=== PATIENT | female | born 1990 | race Caucasian/White ===

== ENCOUNTER 2022-09-04 11:07 | Outpatient (CLI) | payer SELFPAY | END 2022-09-04 11:08 | disposition home or self-care (01) | PROVIDERS: Visit Provider Obstetrics & Gynecology | DX: Z02.89 Encounter for other administrative examinations (principal) | CPT/HCPCS: 36415 ==

== ENCOUNTER 2022-10-03 02:46 | Day surgery (SDC) | payer OTHER, SELFPAY ==
[2022-09-24 12:04] VITALS: BMI 22.8
--- NOTE | 2022-09-24 12:08 | PC.NURSE ---
Report to the Outpatient Waiting Room, entrance under the green pavilion located off [facility], at time 0830 on date 10/03/22. Planned Procedure Time: 1030. Time changes happen often and if your time is changed the preop area will call you the afternoon before. - You and your visitor will be asked to self-screen and do not enter if you have any COVID symptoms. - Only one visitor is requested with a max of two and NO children visitors are allowed at this time. - The patient visitor may be requested to leave or wait in car when not with patient due to distancing restrictions. - A mask is optional within the hospital. Patients may have clear liquids (water, carbonated beverages, clear teas, apple juice) until 3 hours prior to surgery with a maximum of 20 ounces. - No food from midnight until time of surgery Take the following medications with a SIP of water the morning of surgery: NONE Medications to discontinue per physician: VITAMINS/SUPPLEMENTS Date to take last dose: 09/29/22 Please no make-up, nail barbadian, hairspray, perfume, deodorant, or body powder the day of surgery. No jewelry (including any body piercings) or valuables the day of surgery, leave them at home. Please take a shower or bath the night before, or the morning of, surgery with an antibacterial soap. Wear comfortable, loose fitting clothing. - Jewelry must be removed prior to entering the operating room. Rings and piercings that are not removed may be cut off. - The hospital will not accept responsibility for valuables. - Please leave all valuables, including medications, at home the day of surgery. If you are going home after surgery, a licensed flatbed truck driver must drive you home. - NO public transportation without another adult if you receive anesthesia. - We recommend that an adult stay with you for 24 hours following discharge. - We also recommend that you do not drive, make important decision, drink alcoholic beverages, or take any drugs that were not prescribed by your health care provider for at least 24 hours after your discharge time. Follow any additional instructions given to you from your surgeon. If you or anyone in your household have experienced Covid symptoms in the past week, please notify your surgeon or the nurse liaison at the phone number below for possible testing. Telephone instructions given to PT - THAIS GEORGES and asked if any additional questions and then verbalized understanding. Patient advised to call surgeon office or pre surgery nurse liaison [phone] if any additional questions.
--- NOTE | 2022-09-30 12:33 | PM.IMHP ---
H&P: HPI History of Present Illness Date/Time: 09/30/22 12:33 Chief Complaint: 1st trimester with an incompetent cervix Narrative: This is a 32-year-old 2 para 0101 who has a history of incompetent cervix and a section x1 who is admitted for cervical cerclage. She has ultrasound proven date with an EDC of 04/11/2023, she has normal chromosomes via NIPT testing. Risks and benefits were reviewed in great detail. She had all questions answered and asked to proceed [facility] Social History Social History Smoking status: Never smoker Alcohol intake: current Alcohol use details: SOCIAL WHEN NOT Substance use: current Substance use type: marijuana Last use: NOT SINCE Living arrangements: alone Spiritual care concerns: No Meds Home Medications and Allergies Home Medications Medication Instructions Recorded Confirmed Type multivitamin 1 tablet PO DAILY 09/24/22 09/24/22 History omega 5-sgu-mnm-fish oil 900 1 cap PO DAILY 09/24/22 09/24/22 History mg-1,400 mg capsule,delayed release zinc acetate 25 mg (zinc) capsule 25 mg PO DAILY 09/24/22 09/24/22 History Allergies Allergy/AdvReac Type Severity Reaction Status Date / Time sulfamethoxazole Allergy Unknown RASH Verified 09/24/22 12:02 trimethoprim Allergy Unknown RASH Verified 09/24/22 12:02 Exam Const: General: cooperative, healthy appearing and comfortable Nutritional Appearance: average body habitus Orientation/consciousness: oriented to person, oriented to place and oriented to time HENMT: Head: normal to inspection Resp: Effort & Inspection: normal respiratory effort Cardio: Rate: regular rate Rhythm: regular rhythm Heart sounds: S1 normal heart sound present and S2 normal heart sound present GI: Inspection: normal to inspection : External Female Exam: normal external appearance Speculum Exam - Vagina: normal appearance of the vagina Speculum Exam - Cervix: normal appearance of the cervix Bimanual exam- vagina & uterus: enlarged Bimanual Exam- Adnexa, other: normal adnexae Assessment and Plan Assessment and plan (1) First trimester : Code(s): Z34.91 - Encounter for supervision of normal , unspecified, first trimester Status: Acute (2) Incompetent cervix: Code(s): N88.3 - Incompetence of cervix uteri Status: Acute Plan Hsieh cerclage
[2022-10-03] VITALS (11 sets, daily range): BP systolic 94–122; BP diastolic 50–66; PULSE 58–80; RESP 16–20; TEMP 36.9; O2SAT 100
--- NOTE | 2022-10-03 06:22 | WPDHPUPDATE1 ---
History and Physical Update Update Date/Time: 10/03/22 06:22 History and Physical has been reviewed, including an updated exam of the patient. There are NO changes in the patient's condition. Risks, benefits, and alternatives have been discussed and questions answered. Patient agrees to proceed with procedure.
[2022-10-03] MEDS: LACTATED RINGERS 1,000 ML 30 ML IV CONT ×2 (10:00→12:11)
--- NOTE | 2022-10-03 10:20 | WPDANESEPPF ---
Anes - Initial Pre Proc Eval Procedure: Operation Date: 10/03/22 11:15 Proposed Procedures p Jori Simalage - Jonathan Reed MD Date/Time: 10/03/22 10:20 Surgeon: Jonathan Reed MD Pre Op Diagnosis: Incompentent . Cervix Patient Data Age: 32 Gender: F Height: 1.55 m Weight: 54.9 kg Allergies Allergy/AdvReac Type Severity Reaction Status Date / Time sulfamethoxazole Allergy Unknown RASH Verified 10/03/22 10:18 trimethoprim Allergy Unknown RASH Verified 10/03/22 10:18 Home Medications Medication Instructions Recorded Confirmed Type multivitamin 1 tablet PO DAILY 09/24/22 10/03/22 History omega 4-qxd-zho-fish oil 900 1 cap PO DAILY 09/24/22 10/03/22 History mg-1,400 mg capsule,delayed release zinc acetate 25 mg (zinc) capsule 25 mg PO DAILY 09/24/22 10/03/22 History hydrocodone 5 mg-acetaminophen 325 1 tablet PO Q4H PRN pain #14 tabs 10/03/22 Rx mg tablet Patient hx anesthesia problems: none Family hx anesthesia problems: none Results Review: All pre-operative results and documents have been reviewed as part of the pre-operative evaluation. [facility] Social History Social History Smoking status: Never smoker Alcohol intake: current Alcohol use details: SOCIAL WHEN NOT Substance use: current Substance use type: marijuana Last use: NOT SINCE Living arrangements: alone Spiritual care concerns: No Anes - Eval Final PreProcedure Day of Procedure 10/03/22 10:20 Patient weight: normal Heart: regular rate and rhythm Lungs: clear to auscultation Airway: Mallampati scale class II Neurological: alert and oriented Last oral intake: >/= 8 hours ASA classification: II Emergent: no Anesthetic plan: proceed Anesthesia type and monitoring: regional spinal and standard monitoring Results Review: All pre-operative results and documents have been reviewed as part of the pre-operative evaluation. Informed Consent: The patient's anesthetic plan and its attendant risks and benefits were discussed with the patient/family/POA. Questions were solicited and answers provided to the satisfaction of the patient/family/POA.
[2022-10-03] MEDS: ACETAMINOPHEN 500 MG TABLET 1000 MG PO (10:23)
[2022-10-03] MEDS: methylPREDNISolone SOD SUCC 40 MG VIAL 20 MG IV PUSH (10:55)
--- NOTE | 2022-10-03 12:06 | W.PM.PROC2 ---
Procedure Note - Detailed Date of Procedure 10/03/22 Pre-op Diagnosis Incompentent . Cervix Post-op Diagnosis Same Procedure Performed Hsieh cerclage Surgeon Jonathan Reed MD Anesthesia Spinal Indications this is a 32-year-old female with a history of an incompetent cervix at 26 weeks. Risks and benefits have been reviewed and she had normal NIPT testing and is approximately 13 weeks Findings uterus. Description of Procedure Patient is prepped draped in normal sterile fashion placed in the dorsal lithotomy position. Weighted speculum placed in posterior fornix vagina bladder emptied clear the cerclage was serially placed starting at 2:00 to 10:00 10:00 a.m. to 8:00 a.m. 8:00 a.m. 5:00 a.m. and 5:00 a.m. packed 2:00 a.m. this was pulled tight with excellent placement. Was tied at the 2 o'clock position. Blood loss was estimated about 5cc. Heart tones will be checked before she leaves there were no complications. All sponge needle and instrument counts were correct Estimated Blood Loss 5 Drains No Packing No Pathology None sent Complications No immediate complications Condition Stable Disposition PACU
--- NOTE | 2022-10-03 13:29 | SUR.PHASEI ---
OB RN at the bedside about 1220 getting heart tones. She told me it was 160bpm.
== END 2022-10-03 15:16 | disposition home or self-care (01) ==
PROVIDERS: Visit Provider Obstetrics & Gynecology
PROC: 0UVC7ZZ Restriction of Cervix, Via Natural or Artificial Opening (ICD-10-PCS; CPT 57700; principal; 2022-10-03 11:15)
DX: O34.32 Maternal care for cervical incompetence, second trimester (principal); Z3A.26 26 weeks gestation of pregnancy; Z79.899 Other long term (current) drug therapy
CPT/HCPCS: 59320; A9270; J2920; J7120

== ENCOUNTER 2023-02-25 18:22 | Observation (INO) | payer OTHER, SELFPAY ==
--- NOTE | ~2023-02-25 | US_ITS ---
EXAMINATION: US OB limited w BPP DATE: 02/25/2023 19:34 INDICATION: Vaginal bleeding. Check cervical length, placenta, BPP. TECHNIQUE: Real-time ultrasound of the pelvis was performed. COMPARISON: None. FINDINGS: There is a single living fetus in vertex presentation. The placenta is posterior. Cervical length 2. 8 cm. The cervix is closed heart rate is 142 beats per minute (bpm). The amniotic fluid index i s 12.9 cm, which is normal (5th to 95th percentile is 5 to 27 cm). macro biometrics Biophysical profile performed by the technologist: breathing (30 sec sustained breathing in 30 minutes): 2 out of 2 movement (3 gross body movements in 30 minutes: 2 out of 2 tone (one episode of ciggjnf-bfmfzmgpw-ljdbzwx limb movement): 2 out of 2 Amniotic fluid pocket (2 cm): 2 out of 2 Total score: 8 out of 8 IMPRESSION: 1. Single living fetus in vertex presentation. FHR 142 bpm. 2. Normal-appearing posterior placenta. 3. Biophysical profile 8 out of 8. 4. Closed, 2.8 cm cervix. Reviewed, dictated and finalized at location K.
--- NOTE | 2023-02-25 18:22 | PC.NURSE ---
PT arrived to unit at 1821 with c/o bleeding. PT reports she had light pink when wiping yesterday that turned into bright red blood today when wiping. PT denies sex or anything entering her vagina since 02/20/23 beside administering her Flagyl medication. PT states she has some mild cramping.
--- NOTE | 2023-02-25 18:35 | PC.NURSE ---
RN at bedside, RN noted about a golf ball size amount of blood on tissue after PT using restroom.
--- NOTE | 2023-02-25 18:40 | PC.NURSE ---
Dr. Omid Reed notified of PT arriving to unit with c/o of bleeding, PT reports she has not had sexual intercourse or nothing else enter her vagina since 02/20/23. PT currently has a cerclage and has felt some mild cramping. Orders for speculum and ultrasound with BPP, cervical length, and BLAKE.
[2023-02-25 18:51] VITALS: BP 114/67; PULSE 82; RESP 16; TEMP 36.7
--- NOTE | 2023-02-25 19:50 | PC.NURSE ---
RN at bedside, RN noted blood in PT's urine with golf size of blood on tissue.
[2023-02-25 19:55] VITALS: BP 114/66; PULSE 67
--- NOTE | 2023-02-25 20:00 | PC.NURSE ---
Speculum performed, cervix closed at this time, pooling of blood in the vagina with small walnut size clot.
--- NOTE | 2023-02-25 20:11 | PC.NURSE ---
Dr. Omid Reed notified of ultrasound report, blood pooling in vagina with small walnut size clot per speculum, vitals, reactive tracing, and contractions with uterine irritability. Orders to give Procardia 10mg.
[2023-02-25] MEDS: NIFEdipine 10 MG CAPSULE PO ×2 (20:48→22:29)
[2023-02-25 21:30] VITALS: BMI 26.2
--- NOTE | 2023-02-25 21:32 | OBADM ---
This patient, Fatemeh Mack, admitted to the OB room OB Post 115 for observation. Patient/family oriented to hospital policies and general routines including ID bracelet, bed and alarms, visiting hours, pain management, procedures, bathroom and other care routines, personal items, smoking policy, room service/diet, and visiting hours. Patient/Family are encouraged to report perceived risks to care and to ask questions if they do not understand what they are told or what they should do.
--- NOTE | 2023-02-25 22:05 | PC.NURSE ---
RN at bedside, RN noted small smears of blood on tissue after PT using restroom.
--- NOTE | 2023-02-25 22:10 | PC.NURSE ---
Dr. Omid Reed notified of PT having small smears of bright red blood on tissue after using restroom and contractions with uterine irritability. Orders to give a second dose of Procardia 10mg PO.
--- NOTE | 2023-02-25 22:52 | PC.NURSE ---
PT called nursing station with c/o contractions becoming more intense. RN encouraged PT to change positions and increase intake of oral fluids.
--- NOTE | 2023-02-25 23:49 | PC.NURSE ---
RN at bedside, RN noted small dime size spots on tissue after PT using restroom, PT denies feeling contractions at this time.
--- NOTE | 2023-02-25 23:59 | PC.NURSE ---
Dr. Anne notified of PT still job with small smears of bleeding. PT states she does not feel contractions at this time. Orders to keep PT overnight.
--- NOTE | 2023-02-26 00:22 | PC.NURSE ---
Dr. Omid Reed notified of PT stating I would like to go home because I can't get comfortable here. If I can go home I'll be able to get comfortable and then I wont have as much stress then I won't contract, plus I'm not bleeding as much. I only live 10 minutes away if I need to come back RN explained risks of leaving and that it is Dr. Omid Reed's recommendation that she stays at the hospital overnight. PT states I just feel like I would be more comfortable at home with less stress Discharge orders given per Dr. Omid Reed with a Procardia 10mg q6hrs prescription to take home and 12.5mg Betamethasone IM before discharge.
[2023-02-26] MEDS: BETAMETHASONE SOD PHOS/ACETATE 30 MG/5 ML VIAL 12 MG IM (01:07)
--- NOTE | 2023-02-27 13:52 | PM.OBTRLD ---
OB - Triage/Final Diagnosis Visit Information Reason for evaluation: threatened labor Comments/Additional reasons for admission: I have assessed the risk for this patient, Fatemeh Mack, and determined that she would benefit from observation care.
== END 2023-02-26 01:12 | disposition home or self-care (01) ==
PROVIDERS: Admitting Provider Obstetrics & Gynecology; Visit Provider Obstetrics & Gynecology
DX: O47.03 False labor before 37 completed weeks of gestation, third trimester (principal); Z3A.33 33 weeks gestation of pregnancy
CPT/HCPCS: 76815; 76819; 96372; A9270; G0378; G0379; J0702

== ENCOUNTER 2023-02-26 13:00 | Outpatient (CLI) | payer OTHER, SELFPAY ==
[2023-02-26] MEDS: BETAMETHASONE SOD PHOS/ACETATE 30 MG/5 ML VIAL 12 MG IM (13:21)
== END 2023-02-26 13:01 | disposition home or self-care (01) ==
LOC: ANHOBOP 13:10
PROVIDERS: Visit Provider Obstetrics & Gynecology
DX: O34.30 Maternal care for cervical incompetence, unspecified trimester (principal); Z3A.00 Weeks of gestation of pregnancy not specified
CPT/HCPCS: 96372; J0702

== ENCOUNTER 2023-02-27 02:46 | Outpatient (RCR) | payer OTHER, SELFPAY ==
[2023-02-27 03:47] VITALS: BP 110/60; PULSE 88
== END 2023-04-20 12:49 | disposition home or self-care (01) ==
LOC: ANHOBOP 02:46
PROVIDERS: Visit Provider Obstetrics & Gynecology
DX: O36.8130 Decreased fetal movements, third trimester, not applicable or unspecified (principal); Z3A.33 33 weeks gestation of pregnancy
CPT/HCPCS: 59025

== ENCOUNTER 2023-03-19 11:30 | Inpatient (IN) | payer OTHER, SELFPAY ==
[2023-03-19] VITALS (45 sets, daily range): BP systolic 99–131; BP diastolic 45–89; PULSE 71–120; RESP 18; TEMP 36.6–37; O2SAT 89–100
--- NOTE | 2023-03-19 11:42 | LDADM ---
This patient, Fatemeh Mack, was admitted to Labor/Delivery/Recovery 106 on 03/19/23 at 11:30. Plans for labor, pain management and were discussed with patient. Patient/family oriented to hospital policies and general routines including ID bracelet, bed and alarms, visiting hours, pain management, procedures, bathroom and other care routines, personal items, smoking policy, room service/diet and guest tray routines, security routines, and visiting hours. Patient/Family are encouraged to report perceived risks to care and to ask questions if they do not understand what they are told or what they should do. See OBIX for further documentation.
[2023-03-19 11:54] LABS: Basophils Percent Auto 0.2 % (0.2-1.2); Eosinophils Absolute Auto 0.4 K/mm3 (0-0.3); Eosinophils Percent Auto 3.4 % (0-4.4); Hematocrit 38.2 % (37.0-47.0); Hemoglobin 13.2 g/dL (12.0-15.0); Immature Granulocyte Absolute 0.07 K/mm3 (0.00-0.031); Immature Granulocyte Percent A 0.7 % (0-0.5); Lymphocytes Absolute Auto 1.68 K/mm3 (0.9-3.2); Lymphocytes Percent Auto 16.3 % (18.3-44.2); Mean Corpuscular HGB Conc 34.6 g/dl (32-36); Mean Corpuscular Hemoglobin 33.3 pg (26-34); Mean Corpuscular Volume 96.5 fl (80-100); Monocytes Absolute Auto 0.7 K/mm3 (0.1-0.6); Monocytes Percent Auto 7.2 % (2.6-8.5); Neutrophils Absolute Auto 7.4 K/mm3 (1.3-6.7); Neutrophils Percent Auto 72.2 % (45.5-73.1); Platelet Count Result 116 k/mm3 (150-375); Red Blood Count 3.96 M/mm3 (4.2-5.4); Red Cell Distribution Width 12.7 % (11.5-14.5); White Blood Count 10.3 K/mm3 (4.5-10.0)
--- NOTE | 2023-03-19 11:59 | PM.IMHP ---
H&P: HPI History of Present Illness Date/Time: 03/19/23 11:59 Chief Complaint: labor Narrative: [age]-year-old at 30 6 7th weeks gestation in active labor. She had a previous with a malpresentation due to cervical incompetence. This she had a a stitch placed and had that removed. She did receive steroids her group B strep is pending. She will be prophylaxed with group B strep as we do not know results yet [facility] Social History Social History Smoking status: Never smoker Alcohol intake: current Alcohol use details: SOCIAL WHEN NOT Substance use: current Substance use type: marijuana Last use: NOT SINCE Living arrangements: alone Spiritual care concerns: No Meds Home Medications and Allergies Home Medications Medication Instructions Recorded Confirmed Type multivitamin 1 tablet PO DAILY 09/24/22 02/26/23 History omega 1-ptw-flg-fish oil 900 1 cap PO DAILY 09/24/22 02/26/23 History mg-1,400 mg capsule,delayed release nifedipine 10 mg capsule 10 mg PO Q6H #84 caps 02/26/23 Rx Allergies Allergy/AdvReac Type Severity Reaction Status Date / Time sulfamethoxazole Allergy Unknown RASH Verified 10/03/22 10:18 trimethoprim Allergy Unknown RASH Verified 10/03/22 10:18 Exam Const: General: cooperative, healthy appearing and comfortable Nutritional Appearance: average body habitus Orientation/consciousness: oriented to person, oriented to place and oriented to time HENMT: Head: normal to inspection Resp: Effort & Inspection: normal respiratory effort Cardio: Rate: regular rate Rhythm: regular rhythm Heart sounds: S1 normal heart sound present and S2 normal heart sound present GI: Inspection: normal to inspection ( gravid soft uterus) Auscultation: normal bowel sounds : External Female Exam: normal external appearance Speculum Exam - Vagina: normal appearance of the vagina Speculum Exam - Cervix: normal appearance of the cervix ( /1. AROM clear. FHTs reassuring) H&P: Results Labs Labs: Short CBC 03/19/23 Range/Units 11:48 WBC 10.3 H (4.5-10.0) K/mm3 Hgb 13.2 (12.0-15.0) g/dL Hct 38.2 (37.0-47.0) % Plt Count 116 L (150-375) k/mm3 Assessment and Plan Assessment and plan (1) Incompetent cervix: Code(s): N88.3 - Incompetence of cervix uteri Status: Acute (2) Term : Code(s): Z34.90 - Encounter for supervision of normal , unspecified, unspecified trimester Status: Acute (3) Previous section: Code(s): Z98.891 - History of uterine scar from previous surgery Status: Acute Plan expected. Risks and benefits reviewed. She has an epidural candidate but is holding off at this point. We will prophylax her for group B strep as her a result is pending
[2023-03-19] MEDS: LACTATED RINGERS 1,000 ML 125 ML IV CONT ×2 (12:04→13:06)
[2023-03-19] MEDS: AMPICILLIN 2 GM/NS 100 ML 2 GM/100 ML BAG IVPB (12:04)
--- NOTE | 2023-03-19 13:09 | WPDANESEPPF ---
Anes - Initial Pre Proc Eval Procedure: Labor Epidural Date/Time: 03/19/23 13:09 Surgeon: Jonathan Reed MD Pre Op Diagnosis: Labor pain Pre Op Diagnosis: labor Patient Data Age: 32 Gender: F Height: Weight: Last Vital Signs Temp 36.6 C 03/19/23 12:22 Pulse 84 03/19/23 13:09 BP 113/61 03/19/23 13:09 Pulse Ox 97 03/19/23 13:05 O2 Del Method Room Air 03/19/23 11:45 Allergies Allergy/AdvReac Type Severity Reaction Status Date / Time sulfamethoxazole Allergy Unknown RASH Verified 10/03/22 10:18 trimethoprim Allergy Unknown RASH Verified 10/03/22 10:18 Home Medications Medication Instructions Recorded Confirmed Type multivitamin 1 tablet PO DAILY 09/24/22 02/26/23 History omega 1-ize-qba-fish oil 900 1 cap PO DAILY 09/24/22 02/26/23 History mg-1,400 mg capsule,delayed release nifedipine 10 mg capsule 10 mg PO Q6H #84 caps 02/26/23 Rx Laboratory Tests 03/19/23 11:48 WBC 10.3 H K/mm3 (4.5-10.0) RBC 3.96 L M/mm3 (4.2-5.4) Hgb 13.2 g/dL (12.0-15.0) Hct 38.2 % (37.0-47.0) MCV 96.5 fl (80-100) MCH 33.3 pg (26-34) MCHC 34.6 g/dl (32-36) RDW 12.7 % (11.5-14.5) Plt Count 116 L k/mm3 (150-375) MPV 10.0 fl (7.4-10.4) Immature Gran % (Auto) 0.7 H % (0-0.5) Neut % (Auto) 72.2 % (45.5-73.1) Lymph % (Auto) 16.3 L % (18.3-44.2) Wright % (Auto) 7.2 % (2.6-8.5) Eos % (Auto) 3.4 % (0-4.4) Baso % (Auto) 0.2 % (0.2-1.2) Lymph # (Auto) 1.68 K/mm3 (0.9-3.2) Wright # (Auto) 0.7 H K/mm3 (0.1-0.6) Eos # (Auto) 0.4 H K/mm3 (0-0.3) Baso # (Auto) 0.0 K/mm3 (0.0-0.1) Abs Immat Gran (auto) 0.07 H K/mm3 (0.00-0.031) Absolute Neuts (auto) 7.4 H K/mm3 (1.3-6.7) Absolute Nucleated RBC 0.0 K/mm3 (0.0-0.012) Nucleated RBC % 0.0 % (0.0-0.2) RPR Pending Blood Type A Negative Antibody Screen Negative : gestational age (DIEGO 04/11/23) Patient hx anesthesia problems: none Family hx anesthesia problems: none Results Review: All pre-operative results and documents have been reviewed as part of the pre-operative evaluation. [facility] Social History Social History Smoking status: Never smoker Second hand tobacco smoke exposure: No Alcohol intake: current Alcohol use details: SOCIAL WHEN NOT Substance use: never Substance use type: marijuana Last use: NOT SINCE Lack of Transportation: No Lack of Food: Never True Current Housing: I Have Housing Concerned About Future Housing: No Difficulty Paying Gas/Electric Bills: No Difficulty Paying for Meds: No Currently Unemployed: No Education: Bachelor's Degree Difficulty w/ Childcare or Family Care: No Living arrangements: alone Spiritual care concerns: No Anes - Eval Final PreProcedure Day of Procedure 03/19/23 13:09 Patient weight: normal Heart: regular rate and rhythm Airway: Mallampati scale class 1 Neurological: alert and oriented ASA classification: II Emergent: no Anesthetic plan: proceed Anesthesia type and monitoring: regional epidural Results Review: All pre-operative results and documents have been reviewed as part of the pre-operative evaluation. Informed Consent: The patient's anesthetic plan and its attendant risks and benefits were discussed with the patient/family/POA. Questions were solicited and answers provided to the satisfaction of the patient/family/POA.
[2023-03-19] MEDS: TERBUTALINE SULFATE 1 MG/ML VIAL 0.25 MG SUB-Q (13:17)
[2023-03-19] MEDS: OXYTOCIN 30 UNITS/NS 500 ML 30 UNITS/500 ML BAG 999 UNITS IV CONT (14:18)
[2023-03-19] MEDS: METHYLERGONOVINE MALEATE 0.2 MG/ML VIAL IM (14:22)
--- NOTE | 2023-03-19 14:24 | PM.OBPRVD ---
OB - Delivery Note Procedure Delivery date: 03/19/23 Events: Other (ptl) Induction method: None Delivery monitor: External FHT and Internal Uterine Route of delivery: Episiotomy description: None Laceration Description: None Specimen: No Quantitative Blood Loss (ml): 160 Anesthesia type: Epidural Disposition: Floor Baby Date of : 03/19/23 Time of : 14:15 Weeks of gestation at delivery: 36 Infant gender: Male presentation: vertex position: Right Occiput Anterior Placenta delivery description: Spontaneous Cord Vessel Description: 3 Vessels, Nuchal Cord and Loose score one minute: 8 score five minutes: 9
[2023-03-19] MEDS: OXYTOCIN 30 UNITS/NS 500 ML 30 UNITS/500 ML BAG 125 UNITS IV CONT (14:44)
--- NOTE | 2023-03-19 16:28 | PM.DS ---
DS: Admitting Diagnosis Discharge Date 03/20/2023 Admitting Diagnosis 36 week /cervical incompetence DS: Discharge Diagnosis Discharge Diagnosis (1) Previous section: Code(s): Z98.891 - History of uterine scar from previous surgery Status: Acute (2) Term : Code(s): Z34.90 - Encounter for supervision of normal , unspecified, unspecified trimester Status: Acute (3) Incompetent cervix: Code(s): N88.3 - Incompetence of cervix uteri Status: Acute DS: Summary Hospital Course Reason for hospitalization: patient was admitted in active labor on 03/19/2023 Hospital Course: patient underwent spontaneous vaginal delivery 03/19/2023. Her hospital course was unremarkable. She afebrile. She was up, voiding without difficulty, ambulating eating regular diet, general with Time Spent with Patient Time attestation: Total time spent providing and/or coordinating discharge services: Exam Const: General: cooperative, healthy appearing, comfortable and average body habitus Nutritional Appearance: average body habitus and well nourished Orientation/consciousness: oriented to person, oriented to place and oriented to time HENMT: Head: normal to inspection Resp: Effort & Inspection: normal respiratory effort Cardio: Rate: regular rate Rhythm: regular rhythm Heart sounds: S1 normal heart sound present and S2 normal heart sound present GI: Inspection: normal to inspection ( fundus firm below umbilicus) DS: Data Data Completed and Pending Labs on day of discharge: Labs from last 24 hours 03/19/23 11:48 WBC 10.3 H RBC 3.96 L Hgb 13.2 Hct 38.2 MCV 96.5 MCH 33.3 MCHC 34.6 RDW 12.7 Plt Count 116 L MPV 10.0 Immature Gran % (Auto) 0.7 H Neut % (Auto) 72.2 Lymph % (Auto) 16.3 L [place] % (Auto) 7.2 Eos % (Auto) 3.4 Baso % (Auto) 0.2 Lymph # (Auto) 1.68 [place] # (Auto) 0.7 H Eos # (Auto) 0.4 H Baso # (Auto) 0.0 Abs Immat Gran (auto) 0.07 H Absolute Neuts (auto) 7.4 H Absolute Nucleated RBC 0.0 Nucleated RBC % 0.0 RPR Pending Blood Type A Negative Antibody Screen Negative Discharge Plan Discharge Attending physician on discharge: Jonathan Mobley Discharging Clinician: Jonathan Mobley Patient Disposition: Home, Self-Care Activity: no straining and pelvic rest Diet: heart healthy Wound Care Instructions: follow printed instructions Discharge Instructions: Education: Mom and Baby Guide Given to: Mother Follow-Up: Call your delivering provider's office for an appointment to be seen in: 6 Weeks BREAST CARE: * Wear a snug supportive bra. * For engorgement discomfort: Breast Feeding: * Apply warm moist washcloths * Express milk as needed to relieve engorgement * Wear loose clothing * For sore nipples: * Identify correct latch-on * Apply warm moist washcloths before and after nursing * Air dry nipples after nursing * May apply Lansinoh cream to nipples EPISIOTOMY/PERINEAL CARE: * Until bleeding stops, use your lois bottle after urinating * Change your pad frequently throughout the day * You may take sitz baths several times a day (fill your bathtub with warm water and soak for 20 minutes.) Do NOT bathe in the water * No tub baths until seen by your physician - You may shower ACTIVITY: * Rest as much as possible. * Do not exercise or lift anything heavier than your baby (such as laundry or other children.) * Avoid stairs or driving as much as possible. * Do not put anything into the vagina. No douching, tampons, or sexual activity until seen by physician. NOTIFY PHYSICIAN IF YOU HAVE ANY QUESTIONS OR IF ANY OF THE FOLLOWING SYMPTOMS OCCUR: * If your vaginal area becomes red, swollen, or more painful than what you have experienced in the hospital. * If your vaginal bleeding becomes foul smelling. * If y
[2023-03-19] MEDS: BENZOCAINE 20% AER SPR (*SP) 56 GM CAN 1 SPRAY TOPICAL (16:36)
[2023-03-19] MEDS: WITCH HAZEL 40 PADS 1 PAD TOPICAL (16:36)
[2023-03-19] MEDS: IBUPROFEN 600 MG TABLET PO (19:38)
[2023-03-20 00:33] VITALS: BP 98/52; PULSE 71; RESP 16; TEMP 36.9; O2SAT 95
[2023-03-20] MEDS: IBUPROFEN 600 MG TABLET PO (04:36)
[2023-03-20 06:03] LABS: Hematocrit 34.4 % (37.0-47.0); Hemoglobin 11.8 g/dL (12.0-15.0)
--- NOTE | 2023-03-20 07:34 | P.PNOB_ITS ---
OB - PN: Subj Subjective Date/time seen: 03/20/23 07:34 Patient comments: no complaints and pain well controlled baby status: doing well OB - PN: Obj Data Labs 03/20/23 04:32 Labs: Laboratory Results - last 24 hr 03/19/23 03/20/23 11:48 04:32 WBC 10.3 H RBC 3.96 L Hgb 13.2 11.8 L Hct 38.2 34.4 L MCV 96.5 MCH 33.3 MCHC 34.6 RDW 12.7 Plt Count 116 L MPV 10.0 Immature Gran % (Auto) 0.7 H Neut % (Auto) 72.2 Lymph % (Auto) 16.3 L [place] % (Auto) 7.2 Eos % (Auto) 3.4 Baso % (Auto) 0.2 Lymph # (Auto) 1.68 [place] # (Auto) 0.7 H Eos # (Auto) 0.4 H Baso # (Auto) 0.0 Abs Immat Gran (auto) 0.07 H Absolute Neuts (auto) 7.4 H Absolute Nucleated RBC 0.0 Nucleated RBC % 0.0 Blood Type A Negative A Negative Antibody Screen Negative Negative OB - PN A/P Plan day: 1 Plan: routine care Time Spent With Patient Time: Total time spent is greater than 50% in coordination of care (as documented) at patient's floor/unit and/or counseling patient: Time with patient: less than 15 minutes Exam Const: General: cooperative, healthy appearing and comfortable Nutritional Appearance: average body habitus Orientation/consciousness: oriented to person, oriented to place and oriented to time HENMT: Head: normal to inspection Resp: Effort & Inspection: normal respiratory effort Cardio: Rate: regular rate Rhythm: regular rhythm Heart sounds: S1 normal heart sound present and S2 normal heart sound present GI: Inspection: normal to inspection (Fundus firm below umbilicus)
[2023-03-20 08:26] LABS: Rapid Plasma Reagin Non-Reactive (NonReactive)
[2023-03-20 08:45] VITALS: BP 109/61; PULSE 59; RESP 18; TEMP 37.1; O2SAT 98
--- NOTE | 2023-03-20 16:20 | PC.NURSE ---
1530 Baby transferred to [facility], mother requests discharge. Due to rapid nature of discharge procedure RHogam was not given prior to discharge. Called pt (left message on phone) to ask her to return to [facility] within 72 hours for RHogam injection.
== END 2023-03-20 11:30 | disposition home or self-care (01) | DRG 805 ==
LOC: ANHLDR 16:31 → ANHOB2 18:32
PROVIDERS: Admitting Provider Obstetrics & Gynecology; Visit Provider Obstetrics & Gynecology
DX: O34.219 Maternal care for unspecified type scar from previous cesarean delivery (principal); O60.14X0 Preterm labor third trimester with preterm delivery third trimester, not applicable or unspecified; Z37.0 Single live birth; O69.81X0 Labor and delivery complicated by cord around neck, without compression, not applicable or unspecified; Z3A.36 36 weeks gestation of pregnancy
CPT/HCPCS: 36415; 85014; 85018; 85025; 85461; 86592; 86850; 86900; 86901; 90384; A9270; J0290; J2210; J2590; J2790; J2795; J3105; J7120

== ENCOUNTER 2023-08-18 08:16 | Emergency (ER) | payer OTHER, SELFPAY ==
[2023-08-18 08:31] VITALS: BP 115/65; PULSE 73; RESP 16; TEMP 36.3; O2SAT 99
--- NOTE | 2023-08-18 08:33 | ED.URI ---
HPI - URI/Sore Throat General Chief Complaint: Upper Respiratory Infection Stated Complaint: upper respiratory issue Time Seen by Provider: 08/18/23 08:33 Source: patient Mode of arrival: ambulatory Limitations: no limitations History of Present Illness HPI Narrative: 33-year-old female presented for complaint of cough for 3 weeks. At the onset she did have sinus congestion nasal drainage which is improved. She endorses the cough is forceful and keeps her up at night often and she feels short of breath during coughing fits. She denies shortness of breath with exertion, wheezing, nausea vomiting, body aches, fevers or chills at this time. She was prescribed doxycycline 2 days ago by telehealth visit. Also taking Mucinex or DayQuil. Related Data Home Medications Medication Instructions Recorded Confirmed multivitamin 1 tablet PO DAILY 09/24/22 08/18/23 omega 5-kwm-zwi-fish oil 900 1 cap PO DAILY 09/24/22 08/18/23 mg-1,400 mg capsule,delayed release doxycycline hyclate 100 mg capsule 100 mg PO BID 08/18/23 08/18/23 Allergies Allergy/AdvReac Type Severity Reaction Status Date / Time sulfamethoxazole AdvReac Mild RASH Verified 08/18/23 08:34 trimethoprim AdvReac Mild RASH Verified 08/18/23 08:34 Review of Systems Review of Systems: CONSTITUTIONAL: Denies body aches, fever, chills, or sweats. EYES: Denies visual changes, redness, or discharge. ENT: Denies rhinorrhea, congestion, sore throat, or otalgia. CARDIOVASCULAR: Denies chest pain, palpitations, or edema. RESPIRATORY: Reports cough, denies sob, wheezing. GASTROINTESTINAL: Denies abdominal pain, nausea, vomiting, or diarrhea. SKIN: Denies rash, itching, or wounds. MUSCULOSKELETAL: Denies back pain, joint pain, or myalgia. NEUROLOGIC: Denies headache, numbness, tingling, or weakness. All systems reviewed & are unremarkable except as noted in HPI and below PMFSH Past Medical History Medical History (Updated 08/18/23 @ 08:57 by Nasreen Coelho APRN) No pertinent past medical history Social History Social History Smoking status: Never smoker Second hand tobacco smoke exposure: No Alcohol intake: current Alcohol use details: SOCIAL WHEN NOT Substance use: never Substance use type: marijuana Last use: NOT SINCE Lack of Transportation: No Lack of Food: Never True Current Housing: I Have Housing Concerned About Future Housing: No Difficulty Paying Gas/Electric Bills: No Difficulty Paying for Meds: No Currently Unemployed: No Education: Bachelor's Degree Difficulty w/ Childcare or Family Care: No Living arrangements: alone Spiritual care concerns: No Comments At time of signature, I have reviewed and agree with nursing past medical, surgical, social and family history unless otherwise noted. Please see nursing chart for further information. There is no relevant family history pertinent to the presenting complaint Exam Narrative: GENERAL: Well-appearing, in no acute distress. EYES: EOMI. No redness or drainage. Conjunctivae normal. ENT: Mucous membranes pink and moist. No rhinorrhea. TMs normal bilaterally. Throat normal. Uvula midline. NECK: Normal AROM. Supple. CHEST: No respiratory distress. Lungs clear throughout low. Occasional moist nonproductive cough HEART: Regular rate and rhythm. No murmur appreciated. ABDOMEN: Soft, nontender, nondistended, normal active bowel sounds. EXTREMITIES: Normal range of motion. No edema. SKIN: Warm, dry, no rash. Capillary refill normal. Normal skin turgor. NEURO: Alert and oriented x3. Gait steady. PSYCH: Normal affect. Course Course Emergency Course: Patient is aware of diagnosis, understands and agrees to treatment plan. Anticipatory guidance given. Patient agrees to follow-up as directed and is aware of reasons to seek care at the emergency department. Portions of this r
== END 2023-08-18 09:00 | disposition home or self-care (01) ==
PROVIDERS: Emergency Provider Nurse Practitioner Family
DX: J40 Bronchitis, not specified as acute or chronic (principal)
CPT/HCPCS: 99213; G0463

== ENCOUNTER 2024-02-08 09:57 | Outpatient (CLI) | payer OTHER, SELFPAY ==
[2024-02-11 17:02] LABS: Immunoglobulin A 231 mg/dL (47-310); TTG IGA AB <1.0 U/mL
== END 2024-02-08 09:58 | disposition home or self-care (01) ==
LOC: ANHLAB 10:00
PROVIDERS: Visit Provider Nurse Practitioner Family
DX: R10.13 Epigastric pain (principal); R14.0 Abdominal distension (gaseous); R19.7 Diarrhea, unspecified
CPT/HCPCS: 36415; 82784; 86364

== ENCOUNTER 2024-02-27 09:29 | Outpatient (CLI) | payer OTHER, SELFPAY ==
[2024-03-04 23:39] LABS: Calprotectin, Stool 40 mcg/g
[2024-03-07 07:13] LABS: H pylori Ag Stool Not Detected
== END 2024-02-27 09:30 | disposition home or self-care (01) ==
LOC: ANHLAB 09:30
PROVIDERS: Visit Provider Nurse Practitioner Family
DX: R10.13 Epigastric pain (principal); R14.0 Abdominal distension (gaseous); R19.7 Diarrhea, unspecified
CPT/HCPCS: 83993; 87338

== ENCOUNTER 2024-06-09 03:11 | Day surgery (SDC) | payer OTHER, SELFPAY ==
[2024-05-18 11:49] VITALS: BMI 23.3
[2024-06-09 08:25] VITALS: BP 103/67; PULSE 60; RESP 18; TEMP 36.7; O2SAT 100
[2024-06-09 08:30] LABS: BEDSIDEPREGUCG Negative (Negative)
[2024-06-09] MEDS: LACTATED RINGERS 1,000 ML 150 ML IV CONT (08:34)
--- NOTE | 2024-06-09 09:13 | PM.HPGS ---
History of Present Illness History of Present Illness Consent: Risks, benefits, and alternatives have been discussed and questions answered. Patient agrees to proceed with procedure. Chief complaint: diarrhea unspecified, abdominal distension Narrative: Fatemeh Mack is a 34 year old female with gerd and loose stools, never had scopes. Negative serology for celiac, calprotectin stool normal. Review of Systems Review of Systems: All systems reviewed & are unremarkable except as noted in HPI and below PMFSH Past Medical History Medical History (Updated 02/08/24 @ 09:42 by CHRIS Trujillo) Diarrhea Epigastric pain No pertinent past medical history Social History Social History Smoking status: Never smoker Second hand tobacco smoke exposure: No Alcohol intake: current Alcohol use details: 3 per month Substance use: never Substance use type: marijuana Last use: NOT SINCE Lack of Transportation: No Lack of Food: Never True Current Housing: I Have Housing Concerned About Future Housing: No Difficulty Paying Gas/Electric Bills: No Difficulty Paying for Meds: No Currently Unemployed: No Education: Bachelor's Degree Difficulty w/ Childcare or Family Care: No Living arrangements: alone Spiritual care concerns: No Meds Home Medications and Allergies Home Medications Medication Instructions Recorded Confirmed Type multivitamin 1 tablet PO DAILY 09/24/22 06/09/24 History omega 0-mvk-ktk-fish oil 900 1 cap PO DAILY 09/24/22 06/09/24 History mg-1,400 mg capsule,delayed release Allergies Allergy/AdvReac Type Severity Reaction Status Date / Time sulfamethoxazole AdvReac Mild RASH Verified 06/09/24 08:24 trimethoprim AdvReac Mild RASH Verified 06/09/24 08:24 Vital Signs Vital Signs - 24 hr 06/09/24 08:25 Temperature 98.1 F Pulse Rate 60 Respiratory Rate 18 Blood Pressure 103/67 Pulse Oximetry 100 Oxygen Delivery Room Air Exam Const: General: comfortable and no acute distress HENMT: Face/Nose/Sinus: Normal nares present Eyes: General: appearance normal, both eyes and all related structures Neck: Neck: no JVD Resp: Auscultation: clear to auscultation bilaterally Cardio: Rate: regular rate Rhythm: regular rhythm GI: Inspection: non-distended GI Palp: Yes Soft to palpation Skin: General skin exam: normal color Neuro: General: gait normal Speech: normal speech Extrem: General: normal to inspection Psych: Mental Status: mental status grossly normal Assessment and Plan Assessment and plan (1) Epigastric pain: Code(s): R10.13 - Epigastric pain Status: Acute Assessment and Plan: egd with bx (2) Diarrhea: Code(s): R19.7 - Diarrhea, unspecified Status: Acute Assessment and Plan: colonoscopy
--- NOTE | 2024-06-09 09:18 | P.PNAN_ITS ---
Anes - Initial Pre Proc Eval Procedure: Operation Date: 06/09/24 09:30 Proposed Procedures p Esophagogastroduodenoscopy & Colonoscopy - Jhon Pace MD Date/Time: 06/09/24 09:18 Surgeon: Jhon Pace MD Pre Op Diagnosis: diarrhea unspecified, abdominal distension Patient Data Age: 34 Gender: F Height: 1.55 m Weight: 54.7 kg Last Vital Signs Temp 98.1 F 06/09/24 08:25 Pulse 60 06/09/24 08:25 Resp 18 06/09/24 08:25 BP 103/67 06/09/24 08:25 Pulse Ox 100 06/09/24 08:25 O2 Del Method Room Air 06/09/24 08:25 Allergies Allergy/AdvReac Type Severity Reaction Status Date / Time sulfamethoxazole AdvReac Mild RASH Verified 06/09/24 08:24 trimethoprim AdvReac Mild RASH Verified 06/09/24 08:24 Home Medications Medication Instructions Recorded Confirmed Type multivitamin 1 tablet PO DAILY 09/24/22 06/09/24 History omega 0-dot-ecf-fish oil 900 1 cap PO DAILY 09/24/22 06/09/24 History mg-1,400 mg capsule,delayed release Laboratory Tests 06/09/24 08:27 POC Urine HCG, Qual Negative (Negative) Patient hx anesthesia problems: none Family hx anesthesia problems: none Results Review: All pre-operative results and documents have been reviewed as part of the pre- operative evaluation. PMFSH Past Medical History Medical History Diarrhea Epigastric pain No pertinent past medical history Social History Social History Smoking status: Never smoker Second hand tobacco smoke exposure: No Alcohol intake: current Alcohol use details: 3 per month Substance use: never Substance use type: marijuana Last use: NOT SINCE Lack of Transportation: No Lack of Food: Never True Current Housing: I Have Housing Concerned About Future Housing: No Difficulty Paying Gas/Electric Bills: No Difficulty Paying for Meds: No Currently Unemployed: No Education: Bachelor's Degree Difficulty w/ Childcare or Family Care: No Living arrangements: alone Spiritual care concerns: No Anes - Eval Final PreProcedure Day of Procedure 06/09/24 09:18 Patient weight: normal Heart: regular rate and rhythm Lungs: clear to auscultation Airway: Mallampati scale class 1 Neurological: alert and oriented Last oral intake: >/= 8 hours ASA classification: I Emergent: no Anesthetic plan: proceed Anesthesia type and monitoring: general GIVS and standard monitoring Results Review: All pre-operative results and documents have been reviewed as part of the pre- operative evaluation. Abd pain, change in bowel habits. Informed Consent: The patient's anesthetic plan and its attendant risks and benefits were di scussed with the patient/family/POA. Questions were solicited and answers provided to the satisfaction of the patient/family/POA.
--- NOTE | 2024-06-09 09:34 | SUR.OPER ---
EGD: COLON: Start 933
[2024-06-09 09:47] VITALS: BP 87/39; PULSE 75; RESP 18; O2SAT 100
[2024-06-09 09:57] VITALS: BP 93/54; PULSE 53; RESP 18; O2SAT 100
[2024-06-09 10:07] VITALS: BP 96/53; PULSE 54; RESP 18; O2SAT 100
== END 2024-06-09 10:20 | disposition home or self-care (01) ==
PROVIDERS: Referring Provider Nurse Practitioner Family; Visit Provider Internal Medicine Gastroenterology
PROC: 0DJ08ZZ Inspection of Upper Intestinal Tract, Via Natural or Artificial Opening Endoscopic (ICD-10-PCS; CPT 43235; principal; 2024-06-09 09:30)
DX: R19.7 Diarrhea, unspecified (principal); K63.5 Polyp of colon; K21.00 Gastro-esophageal reflux disease with esophagitis, without bleeding; K29.80 Duodenitis without bleeding; K29.50 Unspecified chronic gastritis without bleeding
CPT/HCPCS: 45380; 45385; 43239; 88305; J2003; J2704; J7120

== ENCOUNTER 2024-07-12 15:09 | Outpatient (CLI) | payer OTHER, SELFPAY ==
[2024-07-12 15:35] LABS: Basophils Absolute Auto 0.1 K/mm3 (0.0-0.1); Basophils Percent Auto 0.9 % (0.2-1.2); Eosinophils Absolute Auto 0.4 K/mm3 (0-0.3); Eosinophils Percent Auto 4.4 % (0-4.4); Hematocrit 38.6 % (37.0-47.0); Hemoglobin 12.8 g/dL (12.0-15.0); Immature Granulocyte Absolute 0.02 K/mm3 (0.00-0.031); Immature Granulocyte Percent A 0.2 % (0-0.5); Lymphocytes Absolute Auto 3.12 K/mm3 (0.9-3.2); Lymphocytes Percent Auto 34.4 % (18.3-44.2); Mean Corpuscular HGB Conc 33.2 g/dl (32-36); Mean Corpuscular Hemoglobin 31.2 pg (26-34); Mean Corpuscular Volume 94.1 fl (80-100); Mean Platelet Volume 9.3 fl (7.4-10.4); Monocytes Absolute Auto 0.6 K/mm3 (0.1-0.6); Monocytes Percent Auto 6.7 % (2.6-8.5); Neutrophils Absolute Auto 4.8 K/mm3 (1.3-6.7); Neutrophils Percent Auto 53.4 % (45.5-73.1); Platelet Count Result 219 k/mm3 (150-375); Red Cell Distribution Width 13.2 % (11.5-14.5); White Blood Count 9.1 K/mm3 (4.5-10.0)
== END 2024-07-12 15:10 | disposition home or self-care (01) ==
PROVIDERS: Visit Provider Obstetrics & Gynecology
DX: N92.1 Excessive and frequent menstruation with irregular cycle (principal)
CPT/HCPCS: 36415; 85025; 86850; 86900; 86901

== ENCOUNTER 2024-07-19 00:55 | Day surgery (SDC) | payer OTHER, SELFPAY ==
[2024-07-12 12:05] VITALS: BMI 22.6
--- NOTE | 2024-07-12 12:15 | PC.NURSE ---
Report to the Outpatient Waiting Room, entrance under the green pavilion located off [facility], at time _0930_ on date _[id number]_. Planned Procedure Time: _1130_.? Time changes happen often and if your time is changed the preop area will call you the afternoon before. - You and your visitor will be asked to self-screen and do not enter if you have any COVID symptoms. Please call surgeon if you need to reschedule. - A mask is optional within the hospital at this time. Patients may have clear liquids (water, carbonated beverages, clear teas, apple juice) until 3 hours prior to surgery with a maximum of 20 ounces. - No food from midnight until time of surgery and no smoking Take only the following medications with a SIP of water on the morning of surgery: __None__ DO NOT STOP ANY OF YOUR OTHER PRESCRIPTION MEDICATIONS PRIOR TO SURGERY EXCEPT THE FOLLOWING Medications to discontinue per physician __Vitamins and supplements____ Date to take last [id number]__[phone]___ Please no make-up, nail japanese, hairspray, perfume, deodorant, or body powder the day of surgery.? No jewelry (including any body piercings) or valuables the day of surgery, leave them at home.? Please take a shower or bath the night before, or the morning of, surgery with an antibacterial soap.? Wear comfortable, loose fitting clothing.? - Jewelry must be removed prior to entering the operating room.? Rings and piercings that are not removed may be cut off. - The hospital will not accept responsibility for valuables.? - Please leave all valuables, including medications, at home the day of surgery. If you are going home after surgery, a licensed crew truck driver must drive you home.? - NO public transportation without another adult if you receive anesthesia. - We recommend that an adult stay with you for 24 hours following discharge. - We also recommend that you do not drive, make important decision, drink alcoholic beverages, or take any drugs that were not prescribed by your health care provider for at least 24 hours after your discharge time. Follow any additional instructions given to you from your surgeon. Telephone instructions given to __Fatemeh__and asked if any additional questions and then verbalized understanding. Patient advised to call surgeon office or pre surgery nurse liaison [phone] if any additional questions.
--- NOTE | 2024-07-18 06:28 | PM.IMHP ---
H&P: HPI History of Present Illness Date/Time: 07/18/24 06:28 Chief Complaint: Vaginal bleeding Narrative: 34-year-old female status post ablation admitted for robotic hysterectomy bilateral salpingectomy secondary to continued bleeding she has undergone ablation multiple medical methods have been tried in the been unsuccessful risks and benefits of the procedure reviewed she had all questions answered asked to proceed PMFSH Past Medical History Medical History Diarrhea Epigastric pain GERD (gastroesophageal reflux disease) Irritable bowel syndrome with diarrhea No pertinent past medical history Social History Social History Smoking status: Never smoker Second hand tobacco smoke exposure: No Alcohol intake: current Alcohol use details: 3 per month Substance use: never Substance use type: marijuana Last use: NOT SINCE Lack of Transportation: No Lack of Food: Never True Current Housing: I Have Housing Concerned About Future Housing: No Difficulty Paying Gas/Electric Bills: No Difficulty Paying for Meds: No Currently Unemployed: No Education: Bachelor's Degree Difficulty w/ Childcare or Family Care: No Living arrangements: with family Spiritual care concerns: No Meds Home Medications and Allergies Home Medications Medication Instructions Recorded Confirmed Type multivitamin 1 tablet PO DAILY 09/24/22 07/12/24 History omega 1-pfg-gxo-fish oil 900 1 cap PO DAILY 09/24/22 07/12/24 History mg-1,400 mg capsule,delayed release omeprazole 20 mg capsule,delayed 20 mg PO .daily #30 caps 06/09/24 07/12/24 Rx release zinc 25 mg tablet 25 mg PO DAILY 07/12/24 07/12/24 History Allergies Allergy/AdvReac Type Severity Reaction Status Date / Time sulfamethoxazole AdvReac Mild RASH Verified 07/12/24 12:03 trimethoprim AdvReac Mild RASH Verified 07/12/24 12:03 Exam Const: General: cooperative, healthy appearing and comfortable Nutritional Appearance: average body habitus Orientation/consciousness: oriented to person, oriented to place and oriented to time HENMT: Head: normal to inspection Resp: Effort & Inspection: normal respiratory effort Cardio: Rate: regular rate Rhythm: regular rhythm Heart sounds: S1 normal heart sound present and S2 normal heart sound present GI: Inspection: normal to inspection : External Female Exam: normal external appearance Speculum Exam - Vagina: normal appearance of the vagina Speculum Exam - Cervix: normal appearance of the cervix Bimanual exam- vagina & uterus: enlarged Bimanual Exam- Adnexa, other: normal adnexae Assessment and Plan Assessment and plan (1) Pelvic pain: Code(s): R10.2 - Pelvic and perineal pain Status: Acute (2) Excessive bleeding: Code(s): R58 - Hemorrhage, not elsewhere classified Status: Acute Plan Proceed with robotic total vaginal hysterectomy bilateral salpingectomy
[2024-07-19] VITALS (8 sets, daily range): BP systolic 100–113; BP diastolic 58–70; PULSE 48–76; RESP 12–20; TEMP 36.6–37.2; O2SAT 99–100
--- NOTE | 2024-07-19 07:13 | WPDHPUPDATE1 ---
History and Physical Update Update Date/Time: 07/19/24 07:13 History and Physical has been reviewed, including an updated exam of the patient. There are NO changes in the patient's condition. Risks, benefits, and alternatives have been discussed and questions answered. Patient agrees to proceed with procedure.
[2024-07-19] MEDS: LACTATED RINGERS 1,000 ML 30 ML IV CONT ×2 (10:10→14:13)
[2024-07-19] MEDS: ACETAMINOPHEN 500 MG TABLET 1000 MG PO (10:20)
[2024-07-19] MEDS: KETOROLAC 15 MG/ML VIAL (*BKC) IV PUSH (10:21)
--- NOTE | 2024-07-19 10:52 | SUR.PREOP ---
1050 - pt aware of delay in OR cases
--- NOTE | 2024-07-19 11:19 | P.PNAN_ITS ---
Anes - Initial Pre Proc Eval Procedure: Operation Date: 07/19/24 11:30 Proposed Procedures p Robotic Assisted Total Vaginal Hysterectomy with Bilateral Salpingectomy - Jonathan Reed MD Date/Time: 07/19/24 11:19 Surgeon: Joanthan Reed MD Pre Op Diagnosis: Excessive Irg Bleed, Pelvic Pain, Failed Ablation Patient Data Age: 34 Gender: F Height: 1.55 m Weight: 56.3 kg Last Vital Signs Temp 98.9 F 07/19/24 09:40 Pulse 63 07/19/24 09:40 Resp 20 07/19/24 09:40 BP 113/70 07/19/24 09:40 Pulse Ox 100 07/19/24 09:40 O2 Del Method Room Air 07/19/24 09:40 Allergies Allergy/AdvReac Type Severity Reaction Status Date / Time sulfamethoxazole AdvReac Mild RASH Verified 07/12/24 12:03 trimethoprim AdvReac Mild RASH Verified 07/12/24 12:03 Home Medications Medication Instructions Recorded Confirmed Type multivitamin 1 tablet PO DAILY 09/24/22 07/19/24 History omega 7-rre-exl-fish oil 900 1 cap PO DAILY 09/24/22 07/19/24 History mg-1,400 mg capsule,delayed release omeprazole 20 mg capsule,delayed 20 mg PO .daily #30 caps 06/09/24 07/12/24 Rx release zinc 25 mg tablet 25 mg PO DAILY 07/12/24 07/19/24 History hydrocodone 5 mg-acetaminophen 325 1 tablet PO Q4H PRN pain #20 tabs 07/19/24 Rx mg tablet Patient hx anesthesia problems: none Family hx anesthesia problems: none Results Review: All pre-operative results and documents have been reviewed as part of the pre- operative evaluation. [facility] Past Medical History Medical History Diarrhea Epigastric pain GERD (gastroesophageal reflux disease) Irritable bowel syndrome with diarrhea No pertinent past medical history Social History Social History Smoking status: Never smoker Second hand tobacco smoke exposure: No Alcohol intake: current Alcohol use details: 3 per month Substance use: never Substance use type: marijuana Last use: NOT SINCE Lack of Transportation: No Lack of Food: Never True Current Housing: I Have Housing Concerned About Future Housing: No Difficulty Paying Gas/Electric Bills: No Difficulty Paying for Meds: No Currently Unemployed: No Education: Bachelor's Degree Difficulty w/ Childcare or Family Care: No Living arrangements: with family Spiritual care concerns: No Anes - Eval Final PreProcedure Day of Procedure 07/19/24 11:19 Patient weight: normal Heart: regular rate and rhythm Lungs: clear to auscultation Airway: Mallampati scale class II Neurological: alert and oriented Last oral intake: >/= 8 hours ASA classification: I Emergent: no Anesthetic plan: proceed Anesthesia type and monitoring: general ETT and standard monitoring Results Review: All pre-operative results and documents have been reviewed as part of the pre- operative evaluation. Informed Consent: The patient's anesthetic plan and its attendant risks and benefits were disc ussed with the patient/family/POA. Questions were solicited and answers provided to the satisfaction of the patient/family/POA.
[2024-07-19] MEDS: ceFAZolin 2 GM/D5W 50 ML 2 GM/50 ML BAG IVPB (12:48)
--- NOTE | 2024-07-19 13:51 | W.PM.PROC2 ---
Procedure Note - Detailed Date of Procedure 07/19/24 Pre-op Diagnosis Excessive Irg Bleed, Pelvic Pain, Failed Ablation Post-op Diagnosis Same Procedure Performed Robotic total vaginal hysterectomy Surgeon Jonathan Reed MD Anesthesia General Indications 34-year-old female with excessive heavy bleeding refractory medical therapy Findings normal-appearing ovaries and tubes and uterus Description of Procedure patient was prepped draped normal sterile fashion placed in the dorsal position. Excellent trach anesthesia weighted speculum placed posterior fornix vagina. Anterior lip of the cervix grasped with single-tooth tenaculum . uterus sounded serial dilatation fragmented dilators performed followed passes the 10. JAVID and the 3. Cold cup. Next the 16 [place] catheter was placed in bladder drained clear urine. The weighted speculum was removed the gloves were changed. A supraumbilical incision made the Veress needle passed in the abdomen. Abdomen filled with CO2 gas [id number]. The 8mm trocar advanced the abdomen. Downside visualized no injury seen. Patient placed in Trendelenburg and right left lateral quadrant incision made. 8Mm trocars advanced under visualization right upper quadrant incision made 8 trocar advanced under direct visualization assuring no injury the robot was docked. Attention was turned to the console. The left round ligament grasped, burned, cut. Anterior bladder flap was formed by sharply dissecting perineum reflecting bladder caudally away from the cervix uterus the opposite round ligament which was clamped. Next the fallopian tube was sharply dissected away from the ovarian complex and left attached to its uterine origin. In similar fashion on the right, the fallopian tube was dissected away from ovary left attached at its uterine origin utero-ovarian ligament was then skeletonized on the left to conserve the left. This was clamped, burned,. This was brought to the level of previously cut round ligament. In similar fashion conserving the right ovary, utero-ovarian ligaments clamped, burned, cut brought to level of previously cut round ligament. The cardinal broad ligaments were serially skeletonized clamping burning cutting and bringing this down the lateral edge of the uterus until large tortuous blood vessels were seen on the left these were individually clamped, burned, cut. In similar fashion the cardinal broad ligaments were serially skeletonized clamping burning cutting and bringing this down to the level of the uterine vessels on the right these were individually clamped, burned, cut. Blanching of the uterus was noted a colpotomy incision made. Cervix uterus and tubes removed through the vagina. The vagina then closed with continuous running 0V lock from lateral edge to lateral edge back midline. Irrigation undertaken to clear. Hemostasis was assured. The robot was undocked. The gas removed from the abdomen. The trocars removed the incisions closed with 4 and glue. Patient was awakened went recovery in satisfactory condition. All sponge, needle, instrument counts were correct. There were no immediate complications Estimated Blood Loss 25 Drains No Packing No Pathology Yes Complications No immediate complications Condition Stable Disposition PACU
--- NOTE | 2024-07-19 13:55 | PM.DS ---
DS: Admitting Diagnosis Discharge Date 07/19/2024 Admitting Diagnosis excessive bleeding DS: Discharge Diagnosis Discharge Diagnosis (1) Excessive bleeding: Code(s): R58 - Hemorrhage, not elsewhere classified Status: Acute (2) Pelvic pain: Code(s): R10.2 - Pelvic and perineal pain Status: Acute DS: Summary Hospital Course Reason for hospitalization: patient was admitted for robotic total vaginectomy bilateral 2nd salpingectomy. Hospital Course: The patient's hospital course unremarkable. She remained afebrile. She was up, voiding without difficulty, eating,, generally without complaints. Time Spent with Patient Time attestation: Total time spent providing and/or coordinating discharge services: Exam Const: General: cooperative, healthy appearing and comfortable Nutritional Appearance: average body habitus HENMT: Head: normal to inspection Resp: Effort & Inspection: normal respiratory effort Cardio: Rate: regular rate Rhythm: regular rhythm Heart sounds: S1 normal heart sound present and S2 normal heart sound present GI: Inspection: normal to inspection and incision ( Wounds are clean dry and intact) DS: Data Data Completed and Pending Pending studies at discharge: Pending at discharge 07/19/24 13:45 Surgical [PTH] Routine Discharge Plan Discharge Patient Disposition: Home, Self-Care Stand Alone Forms: General Discharge Instructions Follow-up/Referrals: Jonathan Mobley MD [Physician] - Discharge Medications: New hydrocodone-acetaminophen 5-325 mg tablet 1 tablet PO Q4H PRN (Reason: pain) Qty: 20 0RF No Action multivitamin Tablet 1 tablet PO DAILY omega 1-wjx-ace-fish oil 900-1,400 mg Capsule,Delayed Release(Dr/Ec) 1 cap PO DAILY zinc 25 mg Tablet 25 mg PO DAILY omeprazole 20 mg capsule,delayed release(DR/EC) 20 mg PO .daily Qty: 30 5RF
--- NOTE | 2024-07-19 15:23 | OBPPTRN ---
Patient transferred to post room # 289 via stretcher. Support person present. Oriented to unit, room, information board, rooming in, admission packet and security measures. Patient verbalizes understanding.
[2024-07-19] MEDS: oxyCODONE HCL (*CRX) 5 MG TAB IR 10 MG PO (15:37)
[2024-07-19] MEDS: DEXTROSE 5%/LACTATED RINGERS 1,000 ML 125 ML IV CONT (15:37)
== END 2024-07-19 19:30 | disposition home or self-care (01) ==
LOC: ANHSURGERY 09:37 → ANHOB2 15:21
PROVIDERS: Visit Provider Obstetrics & Gynecology
PROC: (CPT 58552; principal; 2024-07-19 11:30)
DX: N93.9 Abnormal uterine and vaginal bleeding, unspecified (principal); N72 Inflammatory disease of cervix uteri; N87.9 Dysplasia of cervix uteri, unspecified; N83.8 Other noninflammatory disorders of ovary, fallopian tube and broad ligament; N70.11 Chronic salpingitis; R10.2 Pelvic and perineal pain; K21.9 Gastro-esophageal reflux disease without esophagitis
CPT/HCPCS: 58552; S2900; 88307; 99199; A9270; J0690; J1100; J1171; J1200; J1885; J2003; J2250; J2371; J2405; J2704; J3010; J7030; J7120; J7121

== ENCOUNTER 2024-10-22 09:54 | Emergency (ER) | payer SELFPAY ==
--- NOTE | ~2024-10-22 | CT_ITS ---
EXAMINATION: CT abdomen pelvis w con DATE: 10/22/2024 11:55 INDICATION: Hematuria and low back pain. TECHNIQUE: Computed tomography (CT) of the abdomen and pelvis was performed with 100 mL Omnipaque-350 intravenous contrast. Automated exposure control and iterative reconstruction technique were employe d. The dose-length product was 199.49 mGy-cm. COMPARISON: None FINDINGS: Bilateral lower lungs are clear. Heart size normal. No pericardial or pleural effusion. Bilateral natalia ast implants. Liver, gallbladder, spleen, pancreas, bilateral adrenal glands and right kidney are nor mal. Asymmetric mild left renal atrophy with a few regions of cortical scarring which could represent sequela of prior infection or infarction. Fluid throughout the colon consistent with nonspecific kaleigh rrhea. Small bowel and appendix are normal. Bladder is normal. The uterus is not identified and has l ikely been surgically resected. Small amount of likely physiologic free fluid in the deep pelvis. No abscess or free intraperitoneal gas. No pathologically enlarged abdominal or pelvic lymphadenopathy. Mild to moderate bilateral hip osteoarthritis. A few bone islands in the pelvis and proximal right fe mur. IMPRESSION: 1. Fluid throughout the colon consistent with nonspecific diarrhea. Correlate clinically for gastroen teritis. Reviewed, dictated and finalized at location A. T DRIVER IMPRESSION: 1. Fluid throughout the colon consistent with nonspecific diarrhea. Correlate c linically for gastroenteritis.
--- OUTSIDE RECORDS SUMMARY | 2024-10-22 09:56 | XMS_ITS | Patient Health Summary ---
Author Organization [facility] [employer] Address [address] [place] [address] Care Team Providers Care Porter Head Name Role Phone None, Physician Primary Care Provider Unavailabl e Note from [facility],non-owned Affiliates and Associated Physician Practices is amultiple site organization consisting of ambulatory clinics and hospital sitesin [place] and [place]. This disclosure is being madepursuant to the Care Everywhere program and may not contain all information available regarding this patient. Last updated 18.[facility] Allergies * Sulfamethoxazole W-Trimethoprim(Rash) -Low Criticality Medications * Be aware that medications may not be up to date on this document. Alwaysverify current medications with the patient. * Vit-Fe Fumarate-FA ( VITAMIN) 28-0.8 MG tablet Take 1 (one) tablet by mouth once daily * ascorbic acid (VITAMIN C) 500 MG tablet Take 1 (one) tablet by mouth once daily * ibuprofen (MOTRIN) 600 MG tablet(Started 06/09/2016) Take 1 Tab by mouth every 6 hours as needed for Pain 1 refill left * ciprofloxacin 0.3% (CILOXAN) 0.3 % ophthalmic solution(Started 03/23/2017) 2-3 gtts in left eye TID for 7 days * Multiple Vitamin (MULTI-VITAMIN DAILY PO) * VITAMIN D, CHOLECALCIFEROL, PO * Ashwagandha CAPS capsule Take 1 capsule by mouth Active Problems Problem Noted Date Diagnosed Date care following delivery 10/2015 contractions 05/10/2016 [place] product of IVF 05/07/2016 Cervical cerclage suture present in second trime ster 05/07/2016 Cervix, short (affecting ) 05/01/2016 Rh negative state in antepartum period 6 High-risk conceived through in vitro fertilizati on Active labor Complete breech presentation Extreme prematurity, 750-999 grams, 25-26 completed weeks of gestation Immunizations * Rho D Immune Globulin(Given 06/08/2016, 05/01/2016) Social History Tobacco Use Types Packs/Day Years Used Date Smoking Tobacco: Never Smokeless Tobacco: Never Tobacco Cessation:Counseling Given: Yes Alcohol Use Standard Drinks/Week Comments No 0 (1 standard drink = 0.6 oz pur e alcohol) AUDIT-C Answer Date Recorded Q1: How often do you have a drink containing alc ohol? Monthly or less 08/26/2024 Q2: How many drinks containi ng alcohol do you have on a typical day when you are drinking? 1 or 2 08/26/2024 Q3: How often do you have si x or more drinks on one occasion? Never 08/26/2024 Sex and Gender Information Value Date Recorded Sex Assigned at Not on file Gender Identity Not on file Sexual Orientation Not on file Last Filed Vital Signs Vital Sign Reading Time Taken Comments Blood Pressure 100/64 08/26/2024 1:30 PM [facility] Pulse 67 08/26/2024 1:36 PM [facility] Temperature 36.7 C (98.1 F) 08/26/2024 12:55 PM [facility] Respiratory Rate 16 08/26/2024 1:30 PM [facility] Oxygen Saturation 97% 08/26/2024 1:36 PM [facility] Inhaled Oxygen Concentration - - Weight 55.3 kg (122 lb) 08/19/2024 1:14 PM [facility] Height 154.9 cm (5' 1 ) 08/26/2024 9:17 AM [facility] Body Mass Index 23.05 08/19/2024 1:14 PM [facility]OM[facility] Medical Devices Implanted Type Area Bartender Helper Device Identifier Shelf Expiration Date Model / Serial / Lot Impl Brst Brittany Maldonado Mdrt Prfl 405 - [id number] Implanted:Qty: 1 on 08/26/2024 by Ten Dailey MD at [facility] Left: Breast [employer] 01/23/2029 [facility]-405 / [id number] / Impl Brst Brittany Maldonado Mdrt Prfl 405 - [id number] Implanted:Qty: 1 on 08/26/2024 by Ten Dailey MD at [facility] Right: Breast [employer] 02/21/2029 [facility]-405 / [id number] / Procedures * CARDIAC RHYTHM STRIP ORDER(Performed 08/29/2024) * OK REMOVAL INTACT BREAST IMPLANT(Performed 08/26/2024) * IMAGING/RADIOLOGY/XRAY RESULTS ORDER(Performed 07/22/2016) * IMAGING/RADIOLOGY/XRAY RESULTS ORDER(Performed 07/22/2016) * IMAGING/RADIOLOGY/XRAY RESULTS ORDER(Performed 06/11/2016) * SCREEN(Performed 06/08/2016) * RH IMMUNE GLOBULIN WORKUP PANEL(Performed 06/08/2016) * HGB HCT PANEL(Performed 06/08/2016) * BLOOD GASES CORD RIVERA (ISTAT)(Performed 06/07/2016) * BLOOD GASES CORD ART (ISTAT)(Performed 06/07/2016) * TYPE + SCREEN PANEL(Performed 06/07/2016) Performed for contractions ([facility]) * CBC W AUTO DIFFERENTIAL(Performed 06/07/2016) Performed for contractions ([facility]) * URINALYSIS REFLEX MICROSCOPIC REFLEX CULTURE(Performed 06/07/2016) Performed for contractions ([facility]) * CULTURE URINE(Performed 06/07/2016) Performed for contractions ([facility]) * URINALYSIS REFLEX MICROSCOPIC REFLEX CULTURE(Performed 06/02/2016) Performed for Cervix, short (affecting ) ([facility]) * CULTURE URINE(Performed 06/02/2016) Performed for Cervix, short (affecting ) ([facility]) * SONOGRAM - TRANSVAGINAL(Performed 06/02/2016) Performed for Cervix, short (affecting ) ([facility]), High-risk , second trimester ([facility]) * IMAGING/RADIOLOGY/XRAY RESULTS ORDER(Performed 05/28/2016) * GLUCOSE - POINT OF CARE(Performed 05/27/2016) * GLUCOSE - POINT OF CARE(Performed 05/27/2016) * SONOGRAM - COMPLETE(Performed 05/26/2016) Performed for Cervix, short (affecting ) ([facility]) * GLUCOSE - POINT OF CARE(Performed 05/26/2016) * GLUCOSE - POINT OF CARE(Performed 05/26/2016) * GLUCOSE - POINT OF CARE(Performed 05/25/2016) * GLUCOSE - POINT OF CARE(Performed 05/25/2016) * GLUCOSE - POINT OF CARE(Performed 05/24/2016) * GLUCOSE - POINT OF CARE(Performed 05/24/2016) * GLUCOSE - POINT OF CARE(Performed 05/24/2016) * GLUCOSE CHALLENGE(Performed 05/23/2016) Performed for High-risk , unspecified trimester ([facility]) * CHLAMYDIA + GC AMPLIFIED PROBE(Performed 05/23/2016) Performed for Cervix, short (affecting ) ([facility]) * TYPE + SCREEN PANEL(Performed 05/23/2016) Performed for Cervix, short (affecting ) ([facility]) * CBC W AUTO DIFFERENTIAL(Performed 05/23/2016) Performed for Cervix, short (affecting ) ([facility]) * COMPREHENSIVE METABOLIC PANEL(Performed 05/23/2016) Performed for Cervix, short (affecting ) ([facility]) * URINALYSIS REFLEX MICROSCOPIC REFLEX CULTURE(Performed 05/23/2016) Performed for Cervix, short (affecting ) ([facility]) * CULTURE URINE(Performed 05/23/2016) Performed for Cervix, short (affecting ) ([facility]) * IMAGING/RADIOLOGY/XRAY RESULTS ORDER(Performed 05/22/2016) * URINALYSIS REFLEX MICROSCOPIC REFLEX CULTURE(Performed 05/20/2016) Performed for Cervical cerclage suture present in second trimester ([facility]) * CULTURE URINE(Performed 05/20/2016) Performed for Cervical cerclage suture present in second trimester ([facility]) * SONOGRAM - TRANSVAGINAL(Performed 05/19/2016) Performed for Cervix, short (affecting ) ([facility]), High-risk , second trimester ([facility]) * IMAGING/RADIOLOGY/XRAY RESULTS ORDER(Performed 05/18/2016) * SONOGRAM - TRANSVAGINAL(Performed 05/13/2016) * TYPE + SCREEN PANEL(Performed 05/10/2016) * CBC W AUTO DIFFERENTIAL(Performed 05/10/2016) Performed for Cervix, short (affecting ) ([facility]) * URINALYSIS REFLEX MICROSCOPIC REFLEX CULTURE(Performed 05/10/2016) Performed for Cervix, short (affecting ) ([facility]) * CULTURE URINE(Performed 05/10/2016) Performed for Cervix, short (affecting ) ([facility]) * SONOGRAM - TRANSVAGINAL(Performed 05/06/2016) Performed for Cervix, short (affecting ) ([facility]), High-risk , second trimester ([facility]) * CARDIAC RHYTHM STRIP ORDER(Performed 05/03/2016) * CBC W/O DIFFERENTIAL(Performed 05/02/2016) * KLEIHAUER BETKE STAIN(Performed 05/02/2016) * CERCLAGE CERVICAL / SHIRODKAR BANDING(Performed 05/01/2016) * BLOOD TYPE VERIFICATION(Performed 05/01/2016) * CULTURE STREP B(Performed 05/01/2016) Performed for Cervix, short (affecting ) ([facility]) * CHLAMYDIA + GC AMPLIFIED PROBE(Performed 05/01/2016) Performed for Cervix, short (affecting ) ([facility]) * CBC W AUTO DIFFERENTIAL(Performed 05/01/2016) Performed for Cervix, short (affecting ) ([facility]) * URINALYSIS REFLEX TO MICROSCOPIC NO CULTURE(Performed 05/01/2016) Performed for Cervix, short (affecting ) ([facility]) * TYPE + SCREEN PANEL(Performed 05/01/2016) * SONOGRAM - COMPLETE(Performed 05/01/2016) * URINALYSIS OBSTETRICS - POINT OF CARE(Performed 03/28/2016) * REMOVAL CERCLAGE SUTURE * SECTION (EMERGENCY) Results * CARDIAC RHYTHM STRIP ORDER (08/29/2024 4:33 PM [facility]) Only the most recent of2 resultswithin the time period is included. Narrative 08/29/2024 4:33 PM [facility] Ordered by an unspecified provider. Scanned Document CARDIAC SERVICES ORD ERABLES * IMAGING/RADIOLOGY/XRAY RESULTS ORDER (07/22/2016 10:42 PM [facility]OMPER) Only the most recent of6 resultswithin the time period is included. Anatomical Region Laterality Modality Other Narrative 07/22/2016 10:42 PM [facility] Ordered by an unspecified provider. Scanned Document IMAGING * RH IMMUNE GLOBULIN WORKUP PANEL (06/08/2016 5:26 AM CDT) # Rhlg vials needed RHG Candidate, Screen Negative 06/08/2016 8:12 AM CDT [facility] Miscellaneous samples (specimen) BLOOD SPECIMEN / Unknown Lab Venipuncture / Unknown 06/08/2016 5:26 AM CDT 06/08/2016 5:50 AM CDT Jacobo Murray MD LAB - BLOOD BANK ORD ERABLES [facility] [address] [place] [address] * SCREEN (06/08/2016 5:26 AM CDT) Pathologist [facility] Screen Qualitative Negative 06/08/2016 8:08 AM CDT [facility] Miscellaneous samples (specimen) BLOOD SPECIMEN / Unknown Lab Venipuncture / Unknown 06/08/2016 5:26 AM CDT 06/08/2016 5:50 AM CDT Jacobo Murray MD LAB - BLOOD BANK ORD ERABLES Performing Organization Address [facility] Co de Phone Number [facility] [address] [place] [address] * (ABNORMAL) HGB HCT PANEL (06/08/2016 5:26 AM CDT) [facility] Hemoglobin 10.8(L) 12.0 - 15.6 gm/dL 06/08/2016 6:09 AM CDT [facility] Hematocrit 30.5(L) 35.9 - 45.5 % 06/08/2016 6:09 AM CDT [facility] Blood BLOOD SPECIMEN / Unknown Lab Venipuncture / Unknown 06/08/2016 5:26 AM CDT 06/08/2016 5:52 AM CDT Coby Hernandez MD LAB - HEMATOLOGY ORD [employer] [facility] [address] [place] [address] * BLOOD GASES CORD RIVERA (ISTAT) (06/07/2016 7:28 AM CDT) [facility] pH Cord Venous POCT 7.35 7.28 - 7.40 pH 06/07/2016 7:34 AM CDT [facility] pCO2 Cord Venous POCT 41 35 - 45 mmHg 06/07/2016 7:34 AM T [facility] pO2 Cord Venous POCT 23 22 - 33 mmHg 06/07/2016 7:34 AM CDT [facility] HCO3 Cord Arterial POCT 23 22 - 24 mmol/L 06/07/2016 7:34 AM CDT [facility] BE Cord Venous POCT Calc -3 -6.4 - 1.6 mmol/L 06/07/2016 7:34 AM T [facility] TCO2 Cord Venous POCT 24 22 - 30 mmol/L 06/07/2016 7:34 AM [facility] O2 Saturation % Cord Venous Calc POCT 37 % 06/07/2016 7:34 AM T [facility] Site CORD RIVERA 06/07/2016 7:34 AM [facility] Sample iSTAT CORD V 06/07/2016 7:34 AM [facility] Blood CORD BLOOD SPECIMEN / Unknown 06/07/2016 7:28 AM CDT 06/07/2016 7:34 AM T Shoshana Jerry MD LAB - POINT OF CARE ORDERABLES [facility] [address] [place], [place] [id number] * (ABNORMAL) BLOOD GASES CORD ART (ISTAT) (06/07/2016 7:24 AM CDT) pH Cord Arterial POCT 7.33 7.20 - 7.34 pH 06/07/2016 7:34 AM [facility] pCO2 Cord Arterial POCT 46.4 45 - 55 mmHg 06/07/2016 7:34 AM [facility] pO2 Cord Arterial POCT 17 12 - 25 mmHg 06/07/2016 7:34 AM [facility] HCO3 Cord Arterial POCT 24.4(H) 22 - 24 mmol/L 06/07/2016 7:34 AM T [facility] BE Cord Arterial POCT -2 -2.9 - 8.3 mmol/L 06/07/2016 7:34 AM [facility] TCO2 Cord Arterial POCT 26 mmol/L 06/07/2016 7:34 AM [facility] O2 Saturation Cord Art % Calc POCT 22 % 06/07/2016 7:34 AM CDT [facility] Site CORD ART 06/07/2016 7:34 AM CDT [facility] Sample iSTAT CORD A 06/07/2016 7:34 AM CDT [facility] Blood CORD BLOOD SPECIMEN / Unknown 06/07/2016 7:24 AM CDT 06/07/2016 7:34 AM CDT Shoshana Jerry MD LAB - POINT OF CARE ORDERABLES Performing Organization Address [facility] Co de Phone Number [facility] [address] [place] [address] * TYPE & SCREEN (06/07/2016 6:10 AM CDT) Only the most recent of4 resultswithin the time period is included. ABO A 06/07/2016 8:19 AM CDT [facility] Rh Type Negative 06/07/2016 8:19 AM CDT [facility] Comment:History check perfor med. No retype required. Antibody Screen Negative 06/07/2016 8:19 AM CDT [facility] Miscellaneous samples (specimen) BLOOD SPECIMEN / Unknown Venipuncture / Unknown 06/07/2016 6:10 AM CDT 06/07/2016 6:17 AM CDT Patricia Spence MD LAB - BLOOD BANK OR DERABLES Performing Organization Address [facility] Co de Phone Number [facility] [address] [place] [address] * ANTIBODY IDENTIFICATION (06/07/2016 6:10 AM CDT) Miscellaneous samples (specimen) BLOOD SPECIMEN / Unknown Venipuncture / Unknown 06/07/2016 6:10 AM CDT 06/07/2016 6:17 AM CDT Patricia Spence MD LAB - BLOOD BANK OR DERABLES Performing Organization Address [facility] Co de Phone Number [facility] [address] [place] [address] * (ABNORMAL) CBC W AUTO DIFFERENTIAL (06/07/2016 6:10 AM CDT) Only the most recent of4 resultswithin the time period is included. WBC 10.8(H) 4.4 - 10.7 x10E9/L 06/07/2016 6:24 AM CDT [facility] WBC Corrected x10E9/L 06/07/2016 6:24 AM CDT [facility] RBC 3.65(L) 3.80 - 5.20 x10E12/L 06/07/2016 6:24 AM CDT [facility] Hemoglobin 12.5 12.0 - 15.6 gm/dL 06/07/2016 6:24 AM CDT [facility] Hematocrit 35.9 35.9 - 45.5 % 06/07/2016 6:24 AM CDT [facility] MCV 98.4(H) 80.7 - 98.3 fl 06/07/2016 6:24 AM CDT [facility] MCH 34.2(H) 26.7 - 34.0 pg 06/07/2016 6:24 AM CDT [facility] MCHC 34.8 30.8 - 35.9 gm/dL 06/07/2016 6:24 AM CDT [facility] Platelet Count 140(L) 153 - 416 x10E9/L 06/07/2016 6:24 AM CDT [facility] RDW-CV 12.9 12.1 - 14.9 % 06/07/2016 6:24 AM CDT [facility] MPV 9.8 9.4 - 12.9 fl 06/07/2016 6:24 AM CDT [facility] Neutrophils % 65.9 44.0 - 73.0 % 06/07/2016 6:24 AM CDT [facility] Lymphocytes % 23.1 20.0 - 43.0 % 06/07/2016 6:24 AM CDT [facility] Monocytes % 8.2 5.0 - 13.0 % 06/07/2016 6:24 AM CDT [facility] Eosinophils % 1.8 0.0 - 6.0 % 06/07/2016 6:24 AM CDT [facility] Basophils % 0.4 0.0 - 2.0 % 06/07/2016 6:24 AM CDT [facility] Immature Granulocytes 0.6 0 - 1 % 06/07/2016 6:24 AM CDT [facility] Neutrophil Absolute 7.15(H) 2.01 - 7.14 x10E9/L 06/07/2016 6:24 AM CDT [facility] Lymphocytes Absolute 2.50 1.07 - 3.94 x10E9/L 06/07/2016 6:24 AM CDT [facility] Monocytes Absolute 0.89 0.26 - 1.07 x10E9/L 06/07/2016 6:24 AM CDT [facility] Eosinophils Absolute 0.19 0 - 0.47 x10E9/L 06/07/2016 6:24 AM CDT [facility] Basophils Absolute 0.04 0 - 0.08 x10E9/L 06/07/2016 6:24 AM CDT [facility] Immature Granulocytes Absolute 0.06 0.00 - 0.06 x10E9/L 06/07/2016 6:24 AM CDT [facility] nRBC Auto 0 /100 WBC 06/07/2016 6:24 AM T [facility] Blood BLOOD SPECIMEN / Unknown Venipuncture / Unknown 06/07/2016 6:10 AM CDT 06/07/2016 6:17 AM CDT Patricia Spence MD LAB - HEMATOLOGY OR DERABLES Performing Organization Address [facility]/State/[facility] Co de Phone Number [facility] [address] [place] [address] * (ABNORMAL) URINALYSIS ROUTINE W/REFLEX TO CULTURE (06/07/2016 5:24 AM CDT) Only the most recent of5 resultswithin the time period is included. Color UA Yellow Straw, Yellow, Dark Yellow 06/07/2016 5:38 AM CDT [facility] Clarity UA Clear 06/07/2016 5:38 AM CDT [facility] Specific [place] UA 1.006 1.005 - 1.030 06/07/2016 5:38 AM CDT [facility] pH UA 7.0 5.0 - 8.0 pH 06/07/2016 5:38 AM CDT [facility] Protein UA Negative Negative 06/07/2016 5:38 AM CDT [facility] Blood UA 2+(A) Negative 06/07/2016 5:38 AM CDT [facility] Leukocyte UA 1+(A) Negative 06/07/2016 5:38 AM CDT [facility] Nitrite UA Negative Negative 06/07/2016 5:38 AM CDT [facility] Glucose UA Negative Negative 06/07/2016 5:38 AM CDT [facility] Ketone UA Negative Negative 06/07/2016 5:38 AM CDT [facility] Bilirubin UA Negative Negative 06/07/2016 5:38 AM CDT [facility] Urobilinogen UA 0.2 0.1 - 1.0 EU/dL 06/07/2016 5:38 AM CDT [facility] WBC UA Auto 5-10(A) 0-2, 2-5 # /hpf 06/07/2016 5:38 AM CDT [facility] RBC UA Auto 0-2 0-2, 2-5 # /hpf 06/07/2016 5:38 AM CDT [facility] Epithelial Cell UA Auto 2-5 0-2, 2-5 # /hpf 06/07/2016 5:38 AM CDT [facility] Reflex Status Culture to follow 06/07/2016 5:38 AM CDT [facility] Urine URINE SPECIMEN OBTAINED BY CLEAN CATCH PROCEDURE / Unknown Collection / Unknown 06/07/2016 5:24 AM CDT 06/07/2016 5:29 AM CDT Patricia Spence MD LAB - URINALYSIS OR DERABLES Performing Organization Address City/State/[facility] Co de Phone Number [facility] [address] [place] [address] * CULTURE URINE (06/07/2016 5:24 AM CDT) Only the most recent of5 resultswithin the time period is included. Culture <10,000 CFU/mL urogenital livia YAZMIN 06/08/2016 8:56 AM CDT [facility] Urine URINE SPECIMEN OBTAINED BY CLEAN CATCH PROCEDURE / Unknown Collection / Unknown 06/07/2016 5:24 AM CDT 06/07/2016 5:29 AM CDT Patricia Spence MD LAB - MICROBIOLOGY ORDERABLES [facility] [address] [place], [place] [address], [facility] [phone] * SONOGRAM - TRANSVAGINAL (06/02/2016 3:41 PM CDT) Only the most recent of4 resultswithin the time period is included. Anatomical Region Laterality Modality Other 06/02/2016 3:41 PM CDT Narrative 06/02/2016 4:28 PM CDT [facility] PHONE: FAX: Pat. Name: FATEMEH GEORGES [place]. No: [id number] Study Date: 06/02/2016 3:41pm , Age: 08 1990, 26 Pregnancies: 1 Height: 61 in Weight: 118 lb LMP: Unknown GA by 1st: 25w4d GA Selected: 25w4d (From First S) DIEGO: 09/11/2016 Referring MD: Jonathan Guadalupe MD General Farmer: Amita Abarca RDMS Hist/Ind: Incompetent Cervix, Pessary Exam-indicated / Rescue cerclage at 21 weeks on 05/02/16 IVF Heart Rate: 152 bpm Amniotic Fluid Index: 07.3cm (Deepest Pocket) CLINICAL SUMMARY Study Number: 6 A pitts fetus is identified in breech presentation. The placenta is fundal. The amniotic fluid volume is at the upper limits of normal. TRANSVAGINAL ULTRASOUND: The transvaginal cervical length does not show any measurable cervix; there is deep U shaped funneling to the level of the external os with the cerclage noted to be at the external os of the cervix. IMPRESSION: Single, live breech IUP at 25w4d High normal amniotic fluid volume. Placental location: Fundal Deep U shaped funneling to the level of the external os RECOMMEND: Follow up ultrasound as clinically indicated. Patient sent for admission and further management, Drs. Jerry and Oumou notified Thank you for allowing us the opportunity to care for your patient. Devan Gonzalez MD <Electronic Signature> 06/02/2016 04:25pm Shoshana Jerry MD [facility] ORDERABLES * (ABNORMAL) GLUCOSE - POINT OF CARE (05/27/2016 8:43 AM CDT) Only the most recent of9 resultswithin the time period is included. Pathologist [facility] Glucose WB/POC 107(H) 70 - 106 mg/dL 05/27/2016 8:46 AM CDT [facility] Blood BLOOD SPECIMEN / Unknown 05/27/2016 8:43 AM CDT 05/27/2016 8:46 AM CDT Rupesh Fajardo MD LAB - POINT OF CARE ORDERABLES [facility] [address], [place] [id number] * SONOGRAM - COMPLETE (05/26/2016 1:10 PM CDT) Only the most recent of2 resultswithin the time period is included. Anatomical Region Laterality Modality Other 05/26/2016 1:10 PM CDT Narrative 05/26/2016 4:25 PM CDT [facility] PHONE: FAX: Pat. Name: FATEMEH GEORGES. No: [id number] Study Date: 05/26/2016 1:10pm , Age: 08 1990, 26 Pregnancies: 1 Height: 61 in Weight: 118 lb LMP: Unknown GA by 1st: 24w4d GA by US: 25w2d GA Selected: 24w4d (From First S) DIEGO: 09/11/2016 Referring MD: Jonathan Guadalupe MD General Farmer: Gema Muhammad RDMS BMI: 22.29 Hist/Ind: Exam-indicated / Rescue cerclage at 21 weeks on 05/02/16 IVF MEASUREMENTS & AGE GROWTH EVALUATION Measurement GA Range Srce %for GA Ratios ----- ---- ------- BPD 6.4 cm 26w0d (99r4m-96s5b) Hadl BPD 78% FL/BPD 0.68 (0.71 - 0.87* HC 23.0 cm 25w0d (74c5t-98e3w) Hadl HC 60% FL/AC 0.20 (0.20 - 0.24) AC 21.6 cm 26w0d (21q0v-87z2r) Hadl AC 80% HC/AC 1.07 (1.02 - 1.21) FL 4.4 cm 24w2d (76p6r-83r6x) Hadl FL 43% CI 0.80 (0.70 - 0.86) HL 4.1 cm 24w5d (00p7l-38b0f) Jimbo HL 53% GA for sonogram 25w2d (54t9f-72z3e) Weight Estimate: based on (BPD,HC,AC,FL) Avg Weight: 795 gm (679-911) Hadlock : 1lbs, 12oz Normal: 736 gm (552-920) Hadlock Wt% 65% for 24w4d Cervical Length: 0.9 cm Heart Rate: 151 bpm Amniotic Fluid Index: 05.7cm ([place]) CLINICAL SUMMARY Study Number: 5 A single fetus is identified in cephalic presentation. The measurements today are consistent with appropriate growth compared to previous examination. The DIEGO selected is based on a prior ultrasound examination . The amniotic fluid volume is within normal limits. The placenta is fundal. No major malformations are seen. The patient was advised that ultrasound does not allow detection of all structural or chromosomal abnormalities. TRANSVAGINAL ULTRASOUND: The transvaginal cervical length measures 0.85 cm with U -shaped funneling identified. The cerclage was noted on the exam IMPRESSION: Single live IUP at 24w4d Appropriate growth No major malformations are seen within the limitations of ultrasound RECOMMEND: Follow up ultrasound as clinically indicated and as recommended by the inpatient team. Thank you for allowing us the opportunity to care for your patient cc: Inpatient at time of study Rupesh Fajardo MD <Electronic Signature> 05/26/2016 04:26pm Alexandra Saucedo MD [facility] ORDERABLES * (ABNORMAL) GLUCOSE CHALLENGE (05/23/2016 4:05 PM CDT) Pathologist [facility] Glucose Challenge 170(H) 64 - 140 mg/dL 05/23/2016 7:03 PM CDT [facility] Glucose Challenge Time 05/23/2016 7:03 PM CDT [facility] Blood BLOOD SPECIMEN / Unknown Venipuncture / Unknown 05/23/2016 4:05 PM CDT 05/23/2016 4:26 PM CDT Rachel Paul MD LAB - CHEMISTRY CHELSIE BILLINGSLEY Performing Organization Address City/[facility]/ZIP Co de Phone Number [facility] [address] [place] [address] * CHLAMYDIA + GC AMPLIFIED PROBE (05/23/2016 2:05 PM CDT) Only the most recent of2 resultswithin the time period is included. [facility] Chlamydia Amplified Probe Negative Negative 05/25/2016 10:38 AM CDT [facility] GC Amplified Probe Negative Negative 05/25/2016 10:38 AM CDT [facility] Microbiology PART OF UTERINE CERVIX / Unknown Collection / Unknown 05/23/2016 2:05 PM CDT 05/23/2016 2:22 PM CDT Narrative [facility] - 05/25/2016 10:38 AM CDT Results based on detection/no detection of ribosomal RNA by amplified method. Hilary Salmon MD LAB - MICROBIOLOGY O ANDREIA Performing Organization Address City/[facility]/ZIP Co de Phone Number [facility] [address] [phone] * (ABNORMAL) COMPREHENSIVE METABOLIC PANEL (05/23/2016 2:01 PM CDT) [facility] Glucose 76 74 - 106 mg/dL 05/23/2016 2:51 PM CDT [facility] Sodium 138 136 - 145 mmol/L 05/23/2016 2:51 PM CDT [facility] Potassium 3.6 3.5 - 5.1 mmol/L 05/23/2016 2:51 PM CDT [facility] Chloride 107 98 - 107 mmol/L 05/23/2016 2:51 PM CDT [facility] CO2 21(L) 22 - 31 mmol/L 05/23/2016 2:51 PM CDT [facility] Calcium 8.5 8.5 - 10.1 mg/dL 05/23/2016 2:51 PM CDT [facility] Anion Gap 10 5 - 20 mmol/L 05/23/2016 2:51 PM CDT [facility] BUN 13 7 - 21 mg/dL 05/23/2016 2:51 PM CDT [facility] Creatinine 0.40(L) 0.50 - 1.30 mg/dL 05/23/2016 2:51 PM CDT [facility] Alkaline Phosphatase 55 38 - 126 U/L 05/23/2016 2:51 PM CDT [facility] ALT 22 13 - 61 U/L 05/23/2016 2:51 PM CDT [facility] Comment:See reference range update AST 19 5 - 40 U/L 05/23/2016 2:51 PM CDT [facility] Protein Total 6.8 6.4 - 8.2 gm/dL 05/23/2016 2:51 PM CDT [facility] Albumin 2.8(L) 3.4 - 5.0 gm/dL 05/23/2016 2:51 PM CDT [facility] Bilirubin Total 0.1(L) 0.2 - 1.0 mg/dL 05/23/2016 2:51 PM CDT [facility] eGFR by MDRD >60 >60 mL/min/1.7 3m2 05/23/2016 2:51 PM CDT [facility] eGFR by MDRD >60 >60 mL/min/1.7 3m2 05/23/2016 2:51 PM CDT [facility] Blood BLOOD SPECIMEN / Unknown Venipuncture / Unknown 05/23/2016 2:01 PM CDT 05/23/2016 2:22 PM CDT Hilary Salmon MD LAB - CHEMISTRY CHELSIE BILLINGSLEY [facility] [address], [place] [id number] * KLEIHAUER BETKE STAIN (05/02/2016 5:13 AM CDT) Number Cells Counted 0 05/02/2016 7:09 AM CDT [facility] /Maternal Ratio 0 <=0 05/02/2016 7:09 AM CDT [facility] Blood Bank BLOOD SPECIMEN / Unknown Lab Venipuncture / Unknown 05/02/2016 5:13 AM CDT 05/02/2016 5:20 AM CDT Narrative [facility] - 05/02/2016 7:09 AM CDT RHOGAM DOSAGE CHART /Adult ratio Maternal Hemorrhage Range (mL) 300 ug vial dose 0 - 0.0029 0 - 14.9 1 0.003 - 0.0089 15.0 - 44.9 2 0.009 - 0.0149 45.0 - 74.9 3 0.015 - 0.0209 75.0 - 104.9 4 0.021 - 0.0269 105.0 - 134.9 5 0.027 - 0.0329 135.0 - 164.9 6 0.033 - 0.0389 165.0 - 194.9 7 0.039 - 0.0449 195.0 - 224.9 8 0.045 - 0.0509 225.0 - 254.9 9 0.051 - 0.0569 255.0 - 284.9 10 0.057 - 0.0629 285.0 - 314.9 11 0.063 - 0.0689 315.0 - 344.9 12 0.069 - 0.0749 345.0 - 374.9 13 0.075 - 0.0809 375.0 - 404.9 14 0.081 - 0.0869 405.0 - 434.9 15 0.087 - 0.0929 435.0 - 464.9 16 0.093 - 0.0989 465.0 - 494.5 17 0.099 - 0.100 495.0 - 500.0 18 Please note: No Rhogam is recommended for mothers who are Rh positive. Remy Guzman MD LAB - HEMATOLOGY ORD ERABLES [facility] [address] [place] [address] * (ABNORMAL) CBC W/O DIFFERENTIAL (05/02/2016 5:13 AM CDT) WBC 11.9(H) 4.4 - 10.7 x10E9/L 05/02/2016 5:24 AM CDT [facility] RBC 3.13(L) 3.80 - 5.20 x10E12/L 05/02/2016 5:24 AM CDT [facility] Hemoglobin 10.8(L) 12.0 - 15.6 gm/dL 05/02/2016 5:24 AM CDT [facility] Hematocrit 30.1(L) 35.9 - 45.5 % 05/02/2016 5:24 AM CDT [facility] MCV 96.2 80.7 - 98.3 fl 05/02/2016 5:24 AM CDT [facility] MCH 34.5(H) 26.7 - 34.0 pg 05/02/2016 5:24 AM CDT [facility] MCHC 35.9 30.8 - 35.9 gm/dL 05/02/2016 5:24 AM CDT [facility] Platelet Count 137(L) 153 - 416 x10E9/L 05/02/2016 5:24 AM CDT [facility] RDW-CV 13.1 12.1 - 14.9 % 05/02/2016 5:24 AM CDT [facility] MPV 9.2(L) 9.4 - 12.9 fl 05/02/2016 5:24 AM CDT [facility] Blood BLOOD SPECIMEN / Unknown Lab Venipuncture / Unknown 05/02/2016 5:13 AM CDT 05/02/2016 5:19 AM CDT Remy Guzman MD LAB - HEMATOLOGY ORD ERABLES [facility] [address] [place] [address] * BLOOD TYPE VERIFICATION (05/01/2016 4:34 PM CDT) Pathologist [facility] ABO A 05/01/2016 4:57 PM CDT [facility] Rh Type Negative 05/01/2016 4:57 PM CDT [facility] Miscellaneous samples (specimen) BLOOD SPECIMEN / Unknown 05/01/2016 4:34 PM CDT 05/01/2016 4:39 PM CDT Román Cardenas MD LAB - BLOOD BANK ORD ERABLES [facility] [address] * CULTURE STREP B (05/01/2016 4:21 PM CDT) Culture Negative for Beta Hemolytic Streptococcus Group B YAZMIN 05/04/2016 2:27 PM CDT [facility] Microbiology MISCELLANEOUS SAMPLES / Unknown Collection / Unknown 05/01/2016 4:21 PM CDT 05/01/2016 4:38 PM CDT Hilary Mauricio MD LAB - MICROBIOLOGY O RDERABLES Performing Organization Address City/[facility]/ZIP Co de Phone Number [facility] [address] [place] [phone] * (ABNORMAL) URINALYSIS ROUTINE AUTO (05/01/2016 4:00 PM CDT) Color UA Yellow Straw, Yellow, Dark Yellow 05/01/2016 5:30 PM CDT [facility] Clarity UA Clear 05/01/2016 5:30 PM CDT [facility] Specific [place] UA 1.016 1.005 - 1.030 05/01/2016 5:30 PM CDT [facility] pH UA 7.0 5.0 - 8.0 pH 05/01/2016 5:30 PM CDT [facility] Protein UA Negative Negative 05/01/2016 5:30 PM CDT [facility] Blood UA Negative Negative 05/01/2016 5:30 PM CDT [facility] Leukocyte UA Trace(A) Negative 05/01/2016 5:30 PM CDT [facility] Nitrite UA Negative Negative 05/01/2016 5:30 PM CDT [facility] Glucose UA Negative Negative 05/01/2016 5:30 PM CDT [facility] Ketone UA Negative Negative 05/01/2016 5:30 PM CDT [facility] Bilirubin UA Negative Negative 05/01/2016 5:30 PM CDT [facility] Urobilinogen UA 0.2 0.1 - 1.0 EU/dL 05/01/2016 5:30 PM CDT [facility] WBC UA Auto 0-2 0-2, 2-5 # /hpf 05/01/2016 5:30 PM CDT [facility] RBC UA Auto 0-2 0-2, 2-5 # /hpf 05/01/2016 5:30 PM CDT [facility] Epithelial Cell UA Auto 0-2 0-2, 2-5 # /hpf 05/01/2016 5:30 PM CDT [facility] Urine URINE SPECIMEN OBTAINED BY CLEAN CATCH PROCEDURE / Unknown 05/01/2016 4:00 PM CDT 05/01/2016 5:01 PM CDT Hilary Mauricio MD LAB - URINALYSIS ORD ERABLES Performing Organization Address City/[facility]/ZIP Co de Phone Number [facility] [address] [place] [address] * URINALYSIS OBSTETRICS - POINT OF CARE (03/28/2016 1:35 PM CDT) Glucose UA negative Negative [facility] Bilirubin UA negative Negative [facility] PO CT TESTING Ketone UA 1+ Negative [facility] Specific [place] UA POCT 1.015 1.000 - 1.030 [facility] Blood UA neg Negative [facility] pH UA 7.0 5.0 - 8.0 pH units [facility] Protein UA trace Negative [facility] Urobilinogen UA 0.2 0.2 - 1.0 EU/dL [facility] Nitrite UA negative Negative [facility] Leukocyte UA trace Negative [facility] PO CT TESTING QC Verified Yes Yes [facility] POC T TESTING Urine specimen (specimen) URINE / Unknown 03/28/2016 1:35 PM CDT Jazmin Chavez ANALYSIS LEAD-WAGE AND SALARY SPECIALIST LAB - POINT OF CARE ORDERABLES [facility] [address] [id number] [phone] Care Teams Porter Head Relationship Specialty Start Date End Date None, Physician PCP - General 08/26/24
--- OUTSIDE RECORDS SUMMARY | 2024-10-22 09:56 | XMS_ITS | Referral Summary ---
Author Organization [facility] Address [address] [place] [address] Care Team Providers Care Landscape Maintenance Internship Name Role Phone None, Physician Primary Care Provider Unavailabl e Source Comments [facility],non-owned Affiliates and Associated Physician Practices is amultiple site organization consisting of ambulatory clinics and hospital sitesin [place], [place], [place] and [place]. This disclosure is being madepursuant to the Care Everywhere program and may not contain all information available regarding this patient. Last updated 18.[facility] Encounters Date Type Department Care Team Description 08/26/2024 Travel 08/26/2024 10:52 AM DELIVERER OUTSIDE Anesthesia Event [facility] [address] [place] [address] Remy Patterson MD Nagle, Sarah S, HEARING AID MECHANIC-UPPER INSPECTOR 08/26/2024 10:10 AM DELIVERER OUTSIDE - 08/26/2024 12:20 PM DELIVERER OUTSIDE Surgery [facility] [address] [place] [address] Ten Dailey MD BILATERAL REMOVAL OF THE CURRENT IMPLANTS AND REPLACEMENT WITH [address] [employer] IMPLANTS AND BILATERAL CAPSULE TIGHTENING 08/26/2024 8:59 AM DELIVERER OUTSIDE - 08/26/2024 1:43 PM DELIVERER OUTSIDE Hospital Encounter [facility] [address] [place] [address] Ten Dailey MD Surgery General Discharge Disposition: Home or Self Care 08/19/2024 Travel from Last 3 Months Allergies Active Allergy Reactions Criticality Noted Date Comments Sulfamethoxazole W-Trimethoprim Rash Low 03/08 Medications * Be aware that medications may not be up to date on this document. Alwaysverify current medications with the patient. Medication Sig Dispensed Refills Start Date End Date Status Vit-Fe Fumarate-FA ( VITAMIN) 28-0.8 MG tablet Take 1 (one) tablet by mouth once daily Active ascorbic acid (VITAMIN C) 500 MG tablet Take 1 (one) tablet by mouth once daily Active ibuprofen (MOTRIN) 600 MG tablet Take 1 Tab by mouth every 6 hours as needed for Pain 60 Tab 1 06/09/2016 Active ciprofloxacin 0.3% (CILOXAN) 0.3 % ophthalmic solutionIndications:Pi nk eye, left 2-3 gtts in left eye TID for 7 days 10 mL 03/23/2017 Active Multiple Vitamin (MULTI-VITAMIN DAILY PO) Active VITAMIN D, CHOLECALCIFEROL, PO Activ e Ashwagandha CAPS capsule Take 1 capsule by mouth Active Active Problems Problem Noted Date Diagnosed Date care following delivery 10/2015 contractions 05/10/2016 product of IVF 05/07/2016 Cervical cerclage suture present in second trime ster 05/07/2016 Overview (06/07/2016): Modified Hsieh cerclage with Mersilene tape, knot at 12 o'clock with prolene tag placed at 21w0d. Patient dilated 3-4 cm prior to placement Cervix, short (affecting ) 05/01/2016 Overview (05/10/2016): S/p rescue cerclage on 05/01/16 Rh negative state in antepartum period 6 Overview (05/10/2016): S/p Rhogam 05/01/16 High-risk Overview (05/05/2016): Primary PNC with Dr. 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 grams, 25-26 completed weeks of gestation Immunizations Name Administration Dates Next Due Rho D Immune Globulin 06/08/2016,05/01/2016 Social History Tobacco Use Types Packs/Day Years [...] Comments Blood Pressure 100/64 08/26/2024 1:30 PM DELIVERER OUTSIDE Pulse 67 08/26/2024 1:36 PM DELIVERER OUTSIDE Temperature 36.7 C (98.1 F) 08/26/2024 12:55 PM DELIVERER OUTSIDE Respiratory Rate 16 08/26/2024 1:30 PM DELIVERER OUTSIDE Oxygen Saturation 97% 08/26/2024 1:36 PM DELIVERER OUTSIDE Inhaled Oxygen Concentration - - Weight 55.3 kg (122 lb) 08/19/2024 1:14 PM DELIVERER OUTSIDE Height 154.9 cm (5' 1 ) 08/26/2024 9:17 AM DELIVERER OUTSIDE Body Mass Index 23.05 08/19/2024 1:14 PM DELIVERER OUTSIDE Functional Status Functional Status Response Date of Assess ment Is person deaf or have serious hearing difficult y? No 06/07/2016 Is person blind or have serious difficulty seein g? No 06/07/2016 Does person have serious dif ficulty walking/climbing stairs? No 06/07/2016 Does person have difficulty dressing/bathing? No 06/07/2016 Does person have difficulty doing errands alone? No 06/07/2016 Cognitive Status Response Date of Assessm ent Does person have difficulty concentrating/remembering/making decisions? No 06/07/2016 Plan of Treatment Not on file Medical Devices Implanted Type Area Rim Technician Device Identifier Shelf Expiration Date Model / Serial / Lot Impl Brst Brittany Lambira Mdrt Prfl 405 - [id number] Implanted:Qty: 1 on 08/26/2024 by Ten Dailey MD at [facility] Left: Breast [employer] 01/23/2029 [facility]-405 / [id number] / Impl Brst Codye Inspira Mdrt Prfl 405 - [id number] Implanted:Qty: 1 on 08/26/2024 by Ten Dailey MD at [facility] Right: Breast [employer] 02/21/2029 [facility]-405 / [id number] / Procedures Procedure Name Priority Date/Time Associated Diagnosis Comments CARDIAC RHYTHM STRIP ORDER 08/29/2024 4:33 PM DELIVERER OUTSIDE NC REMOVAL INTACT BREAST IMPLANT 08/26/2024 10:25 AM DELIVERER OUTSIDE Special Needs BREAST IMPLANTS ARE AVAILABLE - 08/19 from Last 3 Months Results * CARDIAC RHYTHM STRIP ORDER (08/29/2024 4:33 PM DELIVERER OUTSIDE) Narrative 08/29/2024 4:33 PM DELIVERER OUTSIDE Ordered by an unspecified provider. Scanned Document CARDIAC SERVICES ORD ERABLES from Last 3 Months Advance Directives * Full Code (Latest Code Status on File) Date Activated Date Inactivated Comments 06/07/2016 8:41 AM 06/09/2016 12:46 PM * Full Code Date Activated Date Inactivated Comments 06/07/2016 5:19 AM 06/07/2016 8:41 AM * Full Code Date Activated Date Inactivated Comments 06/02/2016 4:48 PM 06/02/2016 6:47 PM * Full Code Date Activated Date Inactivated Comments 05/23/2016 1:50 PM 05/27/2016 4:01 PM * Full Code Date Activated Date Inactivated Comments 05/23/2016 12:37 PM 05/23/2016 1:50 PM Care Teams Landscape Maintenance Internship Relationship Specialty Start Date End Date None, Physician PCP - General 08/26/24
--- OUTSIDE RECORDS SUMMARY | 2024-10-22 09:56 | XMS_ITS | Clinical Summary ---
Author Organization [facility] Address [address] [place] [id number] Care Team Providers Care Machine Hoop Maker Helper Name Role Phone Unavailable Primary Care Provider Unavailabl e Social History Tobacco Use Types Packs/Day Years Used Date Smoking Tobacco: Never Assessed Comments Unknown Sex and Gender Information Value Date Recorded Sex Assigned at Not on file Legal Sex Female 7:54 AM CDT Gender Identity Not on file Sexual Orientation Not on file Last Filed Vital Signs Vital Sign Reading Time Taken Comments Blood Pressure 110/70 02/17/2018 3:47 PM CDT Pulse 64 02/17/2018 3:47 PM CDT Temperature - - Respiratory Rate - - Oxygen Saturation - - Inhaled Oxygen Concentration - - Weight 57.8 kg (127 lb 6.1 oz) 02/17/2018 3:47 P M CDT Height 154.9 cm (5' 1 ) 02/17/2018 3:47 PM CDT Body Mass Index 24.07 02/17/2018 3:47 PM CDT Plan of Treatment Health Maintenance Due Date Last Done Comments Annual Physical 1991 Hepatitis C 2006 DTaP, Tdap and Td Vaccines ( 1 - Tdap) 2007 Hepatitis B Vaccines (1 of 3 - 19+ 3-dose series) 2007 Cervical Cancer Screening Pa p with HPV Testing (Age 30 to 64) Every 5 Years 2018 Cervical Cancer Screening Pa p Smear (Age 30 to 64) Every 3 Years 10/08/2020 10/08/2017 Cervical Cancer Screening with HPV 10/08/2020 COVID-19 Vaccine ( - 2023-2 5 season) 2024 Influenza Adult (#1) 2024 HPV Vaccines Aged Out No longer eligi ble based on patient's age to complete this topic Meningococcal B Vaccine Aged Out No l onger eligible based on patient's age to complete this topic Meningococcal Vaccine Aged Out No nanda anjel eligible based on patient's age to complete this topic Pneumococcal Vaccine: Pediat rics (0 to 5 Years) and At-Risk Patients (6 to 64 Years) Aged Out No longer eligi ble based on patient's age to complete this topic RSV Immunizations Under 20 Months Aged Out No longer eligible based on patient's age to complete this topic Procedures Procedure Name Priority Date/Time Associated Diagnosis Comments CYTOPATH CERV/VAG THIN LAYER Routine 10/08/2017 12:00 AM PRACTICE PERFORMANCE MANAGER from Last 3 Months or Most Recently Relevant to Health Maintenance Results * Cytopath Cerv/Vag Thin Layer (10/08/2017 12:00 AM PRACTICE PERFORMANCE MANAGER) PAP SMEAR Normal [employer] T O EPIC CONVERSION 10/08/2017 10/08/2017 us Generic Conversion Md DOCKERY PATHOLOGY/CYTOLOGY CHELSIE BILLINGSLEY Final Result [employer] TO EPIC CONVERSION from Last 3 Months or Most Recently Relevant to Health Maintenance Insurance [facility]
--- OUTSIDE RECORDS SUMMARY | 2024-10-22 09:56 | XMS_ITS | Clinical Summary ---
Author Organization [facility] [employer] Address [address] [place] [address] Care Team Providers Care Video Games Storywriter Name Role Phone None, Physician Primary Care Provider Unavailabl e Source Comments [facility] [employer],non-owned Affiliates and Associated Physician Practices is amultiple site organization consisting of ambulatory clinics and hospital sitesin [place], [place], [place] and [place]. This disclosure is being madepursuant to the Care Everywhere program and may not contain all information available regarding this patient. Last updated 18.[facility] [employer] Allergies Active Allergy Reactions Criticality Noted Date [...] 750-999 grams, 25-26 completed weeks of gestation Encounters Date Type Department Care Team Description 08/26/2024 10:52 AM DROP COUNT ASSOCIATE Anesthesia Event [facility] [address] [place] [address] Remy Patterson MD Nagle, Sarah S, RN REHABILITATION-AUTOMOBILE BODY REPAIRER HELPER 08/26/2024 10:10 AM DROP COUNT ASSOCIATE - 08/26/2024 12:20 PM DROP COUNT ASSOCIATE Surgery [facility] [address] [place] [address] Ten Dailey MD BILATERAL REMOVAL OF THE CURRENT IMPLANTS AND REPLACEMENT WITH 405 [facility] IMPLANTS AND BILATERAL CAPSULE TIGHTENING 08/26/2024 8:59 AM DROP COUNT ASSOCIATE - 08/26/2024 1:43 PM DROP COUNT ASSOCIATE Hospital Encounter [facility] [address] [place] [address] Ten Dailey MD Surgery General Discharge Disposition: Home or Self Care 08/26/2024 Travel 08/19/2024 Travel from Last 3 Months Immunizations Name Administration Dates Next Due Rho D Immune Globulin 06/08/2016,05/01/2016 Family History Medical History Relation Name Comments Hypertension Father Cancer Maternal Grandfather Heart Disease Maternal Grandmother Hypertension Maternal Grandmother Stroke Maternal Grandmother Twins Other Cancer Paternal Grandfather Diabetes Paternal Grandfather Heart Disease Paternal Grandmother Relation Name Status Comments Father Maternal Grandfather Maternal Grandmother Other Paternal Grandfather Paternal Grandmother Social History Tobacco Use Types Packs/Day Years [...] Comments Blood Pressure 100/64 08/26/2024 1:30 PM DROP COUNT ASSOCIATE Pulse 67 08/26/2024 1:36 PM DROP COUNT ASSOCIATE Temperature 36.7 C (98.1 F) 08/26/2024 12:55 PM DROP COUNT ASSOCIATE Respiratory Rate 16 08/26/2024 1:30 PM DROP COUNT ASSOCIATE Oxygen Saturation 97% 08/26/2024 1:36 PM DROP COUNT ASSOCIATE Inhaled Oxygen Concentration - - Weight 55.3 kg (122 lb) 08/19/2024 1:14 PM DROP COUNT ASSOCIATE Height 154.9 cm (5' 1 ) 08/26/2024 9:17 AM DROP COUNT ASSOCIATE Body Mass Index 23.05 08/19/2024 1:14 PM DROP COUNT ASSOCIATE Plan of Treatment Health Maintenance Due Date Last Done Comments HIV SCREENING 2003 HEPATITIS C SCREENING 04/12/2006 DTAP/TDAP/TD VACCINES (1 - Tdap) 2007 HEPATITIS B VACCINE (1 of 3 - 19+ 3-dose series) 2007 PAP SMEAR 10/08/2020 10/08/2017 COVID-19 VACCINE (1 - 2023-2 5 season) 2024 INFLUENZA VACCINE (#1) 2024 DEPRESSION SCREENING 09/07/2024 ZOSTER VACCINE (1 of 2) 2038 HIB VACCINE Aged Out No longer eligi ble based on patient's age to complete this topic HPV VACCINE Aged Out No longer eligi ble based on patient's age to complete this topic MENINGOCOCCAL (Group B) VACCINE Aged Out No longer eligible based on patient's age to complete this topic MENINGOCOCCAL VACCINE Aged Out No nanda anjel eligible based on patient's age to complete this topic PNEUMOCOCCAL VACCINE Aged Out No long er eligible based on patient's age to complete this topic Medical Devices Implanted Type Area Community Education Coordinator Device Identifier Shelf Expiration Date Model / Serial / Lot Impl Brst Natrelle Inspira Mdrt Prfl 405 - [id number] Implanted:Qty: 1 on 08/26/2024 by Ten Dailey MD at [facility] Left: Breast [employer] 01/23/2029 [facility] / [id number] / Impl Brst Natrelle Inspira Mdrt Prfl 405 - [id number] Implanted:Qty: 1 on 08/26/2024 by Ten Dailey MD at [facility] Right: Breast [employer] 02/21/2029 [facility] / [id number] / Procedures Procedure Name Priority Date/Time Associated Diagnosis Comments CARDIAC RHYTHM STRIP ORDER 08/29/2024 4:33 PM DROP COUNT ASSOCIATE FL REMOVAL INTACT BREAST IMPLANT 08/26/2024 10:25 AM DROP COUNT ASSOCIATE Special Needs BREAST IMPLANTS ARE AVAILABLE - 08/19 from Last 3 Months Results * CARDIAC RHYTHM STRIP ORDER (08/29/2024 4:33 PM DROP COUNT ASSOCIATE) Narrative 08/29/2024 4:33 PM DROP COUNT ASSOCIATE Ordered by an unspecified provider. Scanned Document [...] 12:37 PM 05/23/2016 1:50 PM Care Teams Video Games Storywriter Relationship Specialty Start Date End Date None, Physician PCP - General 08/26/24
--- OUTSIDE RECORDS SUMMARY | 2024-10-22 09:56 | XMS_ITS | Continuity of Care Document ---
Author Organization [facility] Address [address] [place] [address] Phone Care Team Providers Care Rpg Developer Name Role Phone Antoni Warren MD Unavailable Unavailable Advance Directives Directive Yes / No Effective Date File Name No Information Encounters Encounter Description Practice Location Reason(s) For Visit Diagnoses Date Provider Providers Copied on Encounter [facility], [address] [place] [address], [id number], [place] tel:[phone] [facility] No Information May-0 201 8 Kelvin Corrales. [address] [address], [place], [place], [id number] , [place]. tel: [phone] Family History Family Member Type Diagnosis Age At Onset No Information Payers Payer name Insurance type Covered alliance party ID Authoriza tion(s) No Information Social History Type Description Quantity Date Captured Comments Sex Female Smoking Status No Information Chief Complaint And Reason For Visit No Information Reason For Referral Reason For Referral No Information History Of Present Illness Encounter Date Complaint History Of Prese nt Illness No Information Functional Status Date Functional Assessmen t No Information Instructions Date Instruction Additional Infor mation No Information Assessments Type Assessment Date No Information Patient Care Teams Name Effective Dates (start - stop) Status Members No Information
[2024-10-22 10:01] VITALS: BP 115/72; PULSE 76; RESP 14; TEMP 37.2; O2SAT 100
--- OUTSIDE RECORDS SUMMARY | 2024-10-22 10:11 | XMS_ITS | Continuity of Care Document ---
Author Organization [facility] Address [address] [place] [address] Phone Care Team Providers Care Site Administrator Name Role Phone Antoni Warren MD Unavailable Unavailable Advance Directives Directive Yes / No Effective Date File Name No Information Encounters Encounter Description Practice Location Reason(s) For Visit Diagnoses Date Provider Providers Copied on Encounter [facility], [address] [place] [address], [id number], [place] tel:[phone] [facility] No Information May-0 201 8 Kelvin Corrales. [address] [address], [place], [place], [id number] , [place]. tel: [phone] Family History Family Member Type Diagnosis Age At Onset No Information Payers Payer name Insurance type Covered democrat ID Authoriza tion(s) No Information Social History [...]
--- NOTE | 2024-10-22 10:14 | ED_ITS ---
HPI - General Adult General Chief complaint: Urogenital-Female Stated complaint: hematuria since Time Seen by Provider: 10/22/24 10:00 History of Present Illness HPI narrative: 34-year-old female presenting to the emergency department for evaluation for lower back pain. Patient was having urinary symptoms on contacted her OB Gyne and was started on Macrobid. No UA was done at that time. Patient states she has had migraine, upper respiratory symptoms and worsening lower back pain. Patient was running a fever of 100.3 at home this was treated with Tylenol and DayQuil and fever did improve. Patient reports having frequent urinary tract infections when she was younger not as many currently. Patient denies any prior history of kidney stones. Related Data Home Medications ?Medication ?Instructions ?Recorded ?Confirmed ?Last Taken ?Type multivitamin 1 tablet PO DAILY 09/24/22 07/19/24 07/12/24 07:00 History omega 9-oqz-ufi-fish oil 900 1 cap PO DAILY 09/24/22 07/19/24 07/12/24 07:00 History mg-1,400 mg capsule,delayed release zinc 25 mg tablet 25 mg PO DAILY 07/12/24 07/19/24 07/12/24 History Allergies Allergy/AdvReac Type Severity Reaction Status Date / Time sulfamethoxazole AdvReac Mild RASH Verified 10/22/24 09:57 trimethoprim AdvReac Mild RASH Verified 10/22/24 09:57 Review of Systems 2 Review of Systems: All systems reviewed & are unremarkable except as noted in HPI and below PMFSH Past Medical History Medical History Diarrhea Epigastric pain GERD (gastroesophageal reflux disease) Irritable bowel syndrome with diarrhea No pertinent past medical history Social History Social History Smoking status: Never smoker Second hand tobacco smoke exposure: No Alcohol intake: current Alcohol use details: 3 per month Substance use: never Substance use type: marijuana Last use: NOT SINCE Lack of Transportation: No Lack of Food: Never True Current Housing: I Have Housing Concerned About Future Housing: No Difficulty Paying Gas/Electric Bills: No Difficulty Paying for Meds: No Currently Unemployed: No Education: Bachelor's Degree Difficulty w/ Childcare or Family Care: No Living arrangements: with family Spiritual care concerns: No Exam 2 Narrative: APPEARANCE: Ill-appearing HEAD: normocephalic, atraumatic. EYES: PERRLA/EOMI, conjunctivae clear. NOSE: Normal no drainage EARS:TMS clear with good light reflex. THROAT: Pharynx clear, no exudate. NECK: Supple. No adenopathy, no masses. RESPIRATORY: Airway patent, respirations nonlabored. Clear to auscultation bilaterally, no rales, rhonchi, wheezing. CARDIOVASCULAR: Regular rate and rhythm without murmurs rubs or gallops. ABDOMINAL: Soft, nontender, nondistended, normal bowel sounds MUSCULOSKELETAL: Moves all extremities. Strength/ROM intact, No edema, No calf tenderness. NEURO: Alert. Cranial nerves II through XII intact. Good gait. Good coordination SKIN: Warm, dry. Normal Color Course Vital Signs Vital signs: Vital Signs Temperature 98.9 F 10/22/24 10:01 Pulse Rate 76 10/22/24 10:01 Respiratory Rate 14 10/22/24 10:01 Blood Pressure 115/72 10/22/24 10:01 Pulse Oximetry 100 10/22/24 10:01 Temperature 98.9 F 10/22/24 13:07 Pulse Rate 80 10/22/24 13:07 Respiratory Rate 19 10/22/24 13:07 Blood Pressure 119/79 10/22/24 13:07 Pulse Oximetry 100 10/22/24 13:07 Medical Decision Making [facility] Narrative Medical decision making narrative: 34-year-old female presented emergency department for multiple complaints including hematuria, diarrhea, cough congestion body aches and fatigue. Patient was having urinary symptoms a few days ago and was started on Macrobid by her OB Gyne, upon arrival emergency department patient is currently afebrile with no leukocytosis and hemoglobin of 13.1. Patient has no significant abnormalities on her CMP urine was high red blood cells. Patient did test positive influenza A. CT scan was ordered due to the complaint of lower back pain with contacts at hematuria, I wanted to rule out ureteral calculi, CT scan was negative for kidney stones but did show evidence of a diarrheal illness. Patient does report some nausea and some soft stools. Patient was updated on the results of her workup. Patient will be discharged home with instructions to continue taking her Macrobid, she will be provided Zofran with instructions to follow a clear liquid diet until the nausea or diarrhea resolved, patient will also be provided an albuterol inhaler Tessalon Perles for symptomatic control. Patient was updated on results of workup and plan for treatment home. All questions concerns were addressed. Differential Diagnosis Differential Diagnosis: Colitis, diverticulitis, ureteral calculi, urinary tract infection, COVID, RSV, influenza Vital Signs Vital Signs: Vital Signs Temperature 98.9 F 10/22/24 10:01 Pulse Rate 76 10/22/24 10:01 Respiratory Rate 14 10/22/24 10:01 Blood Pressure 115/72 10/22/24 10:01 Pulse Oximetry 100 10/22/24 10:01 Temperature 98.9 F 10/22/24 13:07 Pulse Rate 80 10/22/24 13:07 Respiratory Rate 19 10/22/24 13:07 Blood Pressure 119/79 10/22/24 13:07 Pulse Oximetry 100 10/22/24 13:07 Lab Data Lab results reviewed: Yes I reviewed the patient's lab results. 10/22/24 10:31 10/22/24 10:31 Labs: Lab Results 10/22/24 10/22/24 Range/Units 10:31 11:29 WBC 5.3 (4.5-10.0) K/mm3 RBC 4.15 L (4.2-5.4) M/mm3 Hgb 13.1 (12.0-15.0) g/dL Hct 39.1 (37.0-47.0) % MCV 94.2 (80-100) fl MCH 31.6 (26-34) pg MCHC 33.5 (32-36) g/dl RDW 13.2 (11.5-14.5) % Plt Count 108 L D (150-375) k/mm3 MPV 9.6 (7.4-10.4) fl Immature Gran % (Auto) 0.2 (0-0.5) % Neut % (Auto) 73.2 H (45.5-73.1) % Lymph % (Auto) 16.3 L (18.3-44.2) % Lynn % (Auto) 9.3 H (2.6-8.5) % Eos % (Auto) 0.6 (0-4.4) % Baso % (Auto) 0.4 (0.2-1.2) % Lymph # (Auto) 0.86 L (0.9-3.2) K/mm3 Lynn # (Auto) 0.5 (0.1-0.6) K/mm3 Eos # (Auto) 0.0 (0-0.3) K/mm3 Baso # (Auto) 0.0 (0.0-0.1) K/mm3 Abs Immat Gran (auto) 0.01 (0.00-0.031) K/mm3 Absolute Neuts (auto) 3.9 (1.3-6.7) K/mm3 Absolute Nucleated RBC 0.000 (0.0-0.012) K/mm3 Nucleated RBC % 0.0 (0.0-0.2) % % Immature Plt Fraction 1.0 (0.9-11.2) % Sodium 136 L (137-145) mmol/L Potassium 4.1 (3.4-5.0) mmol/L Chloride 106 (98-107) mmol/L Carbon Dioxide 27 (22-30) mmol/L Anion Gap 3 L (4-12) mmol/L BUN 14 (7-17) mg/dL Creatinine 0.82 (0.7-1.0) mg/dL Estim Creat Clear Calc 62 ml/min Estimated GFR > 60 (59 - ) Glucose 87 (65-110) mg/dL Calcium 8.0 L (8.4-10.2) mg/dL Total Bilirubin 0.2 (0.2-1.3) mg/dL AST 39 H (14-36) U/L ALT 26 (6-35) U/L Alkaline Phosphatase 71 (38-126) U/L Total Protein 6.0 L (6.3-8.2) g/dL Albumin 2.8 L (3.5-5.1) g/dL Urine Color Red H (Yellow) Urine Appearance Turbid H (Clear) Urine pH 6.0 (5.0-9.0) Ur Specific [place] 1.017 (1.001-1.035) Urine Protein TNP Urine Glucose (UA) TNP Urine Ketones TNP Ur Blood (Man) TNP Urine Nitrate TNP Urine Bilirubin TNP Urine Urobilinogen TNP Add Ur Microanalysis Reviewed Leukocyte Esterase Rfl TNP Urine RBC >100 H (0-2) /hpf Urine WBC 11-20 H (0-3) /hpf Ur Squamous Epith Cells Few (Few) /hpf Urine Bacteria None seen /hpf Urine Casts 0-2 POC Urine HCG, Qual Negative (Negative) Influenza A (RT-PCR) Positive A (Negative) Influenza B (RT-PCR) Negative (Negative) RSV (RT-PCR) Negative (Negative) SARS-CoV-2 RNA (RT-PCR) Negative (Negative) Imaging Data Radiologist's impression: Impressions Abdomen/Pelvis CT 10/22/24 12:27 IMPRESSION: 1. Fluid throughout the colon consistent with nonspecific diarrhea. Correlate clinically for gastroenteritis. Discharge Plan Discharge Clinical Impression: UTI (urinary tract infection), Influenza A, Nausea Patient Disposition: Home, Self-Care Condition: Stable Instructions: Antibiotic Form, Urinary Tract Infection in Women (ED), Clear Liquid Diet (ED), Influenza (DC) Additional Instructions: Zofran as needed for nausea control, clear liquid diet for the next 1-3 days. Continue to take your antibiotic as directed until completed, albuterol inhaler for shortness of breath and Tessalon Perles for cough. Have close follow-up with your primary care physician. Patient Language: Khmer Prescriptions: New benzonatate 100 mg capsule 100 mg PO TID PRN (Reason: cough) Qty: 14 0RF albuterol sulfate 90 mcg/actuation HFA aerosol inhaler 1 puff inhalation QID Qty: 6.7 0RF ondansetron 4 mg tablet,disintegrating 4 mg PO Q8H PRN (Reason: nausea and vomiting) Qty: 14 0RF No Action multivitamin Tablet 1 tablet PO DAILY omega 0-mpb-ebk-fish oil 900-1,400 mg Capsule,Delayed Release(Dr/Ec) 1 cap PO DAILY zinc 25 mg Tablet 25 mg PO DAILY hydrocodone-acetaminophen 5-325 mg tablet 1 tablet PO Q4H PRN (Reason: pain) Qty: 20 0RF omeprazole 20 mg capsule,delayed release(DR/EC) 20 mg PO .daily Qty: 30 5RF Follow-up/Referrals: PHYSICIAN,VARITYPE OPERATOR [Primary Care Provider] -
[2024-10-22 10:41] LABS: Basophils Percent Auto 0.4 % (0.2-1.2); Eosinophils Percent Auto 0.6 % (0-4.4); Hematocrit 39.1 % (37.0-47.0); Hemoglobin 13.1 g/dL (12.0-15.0); Immature Granulocyte Absolute 0.01 K/mm3 (0.00-0.031); Immature Granulocyte Percent A 0.2 % (0-0.5); Lymphocytes Absolute Auto 0.86 K/mm3 (0.9-3.2); Lymphocytes Percent Auto 16.3 % (18.3-44.2); Mean Corpuscular HGB Conc 33.5 g/dl (32-36); Mean Corpuscular Hemoglobin 31.6 pg (26-34); Mean Corpuscular Volume 94.2 fl (80-100); Mean Platelet Volume 9.6 fl (7.4-10.4); Monocytes Absolute Auto 0.5 K/mm3 (0.1-0.6); Monocytes Percent Auto 9.3 % (2.6-8.5); Neutrophils Absolute Auto 3.9 K/mm3 (1.3-6.7); Neutrophils Percent Auto 73.2 % (45.5-73.1); Platelet Count Result 108 k/mm3 (150-375); Red Blood Count 4.15 M/mm3 (4.2-5.4); Red Cell Distribution Width 13.2 % (11.5-14.5); White Blood Count 5.3 K/mm3 (4.5-10.0)
[2024-10-22 10:52] LABS: Bacteria Urine None Seen /hpf; Need Manual Microscopic Reviewed; Non Pathogenic Casts 0-2; RBC Urine >100 /hpf (0-2); Squamous Epithelial Cell Urine Few /hpf (Few)
[2024-10-22 10:54] LABS: Add Urine Microscopic? YES; Appearance Urine Turbid (Clear); Color Urine Red (Yellow); Specific Grav Ur 1.017 (1.001-1.035)
[2024-10-22 10:56] LABS: Alanine Aminotransferase 26 U/L (6-35); Albumin Level 2.8 g/dL (3.5-5.1); Alkaline Phosphatase 71 U/L (38-126); Anion Gap 3 mmol/L (4-12); Aspartate Amino Transferase 39 U/L (14-36); Bilirubin,Total 0.2 mg/dL (0.2-1.3); Blood Urea Nitrogen 14 mg/dL (7-17); Carbon Dioxide 27 mmol/L (22-30); Chloride 106 mmol/L (98-107); Estimated CRCL calculation 62 ml/min; Estimated Glomerular Filt Rate > 60; Glucose 87 mg/dL (65-110); Potassium 4.1 mmol/L (3.4-5.0); Sodium 136 mmol/L (137-145)
[2024-10-22] MEDS: SODIUM CHLORIDE 0.9% IV 1,000 ML 999 ML IV CONT (11:11)
[2024-10-22 11:15] VITALS: BP 115/78; PULSE 72; RESP 18; O2SAT 100
[2024-10-22 11:17] LABS: Influenza A QL RT-PCR Positive (Negative); Influenza B QL RT-PCR Negative (Negative); RSV RNA, RT-PCR Negative (Negative); SARS-CoV-2 RNA PCR Negative (Negative)
[2024-10-22 11:32] LABS: BEDSIDEPREGUCG Negative (Negative)
[2024-10-22] MEDS: KETOROLAC 15 MG/ML VIAL (*BKC) IV PUSH (13:06)
[2024-10-22 13:07] VITALS: BP 119/79; PULSE 80; RESP 19; TEMP 37.2; O2SAT 100
== END 2024-10-22 13:12 | disposition home or self-care (01) ==
PROVIDERS: Emergency Provider Emergency Medicine
DX: N39.0 Urinary tract infection, site not specified (principal); J10.1 Influenza due to other identified influenza virus with other respiratory manifestations; R11.0 Nausea; Z20.822 Contact with and (suspected) exposure to COVID-19; K21.9 Gastro-esophageal reflux disease without esophagitis; K58.0 Irritable bowel syndrome with diarrhea
CPT/HCPCS: 36415; 74177; 80053; 81001; 81025; 85025; 85055; 87086; 87637; 96361; 96374; 99284; J1885; J7030; Q9967

== ENCOUNTER 2025-03-08 06:31 | Outpatient (CLI) | payer OTHER, MEDICAID, SELFPAY ==
--- NOTE | ~2025-03-08 | CT_ITS ---
CT of the Abdomen and Pelvis: Indication: Microscopic hematuria Technique: 2.5 mm axial scans were obtained through the abdomen and pelvis prior to and following in travenous administration of 130 cc of Omnipaque 350. Dose reduction technique was used on this scan b y utilizing automated exposure control and iterative reconstruction technique. The dose-length produc t (DLP) was 553.86 mGy-cm. COMPARISON: 10/22/2024 Findings: Scans through the lung bases are unremarkable. The liver, spleen, pancreas, gallbladder, adrenals and kidneys are within normal limits. No evidence of aortic aneurysm. No lymphadenopathy. No bowel obstruction or bowel wall thickening. There is no evidence to suggest acute appendicitis. Images through the pelvis were performed. Urinary bladder unremarkable. No pelvic mass seen. No ascit es. Impression: No significant abnormality seen. No etiology for hematuria identified. Reviewed, dictated and finalized at [place] [facility]. Impression: No significant abnormality seen. No etiology for hematuria identified.
--- OUTSIDE RECORDS SUMMARY | 2025-03-08 06:36 | XMS_ITS | Clinical Summary ---
Author Organization [facility] Address [address] [place] [address] Care Team Providers Care Management Analyst Name Role Phone None, Physician Primary Care Provider Unavailabl e Source Comments [facility],non-owned Affiliates and Associated Physician Practices is amultiple site organization consisting of ambulatory clinics and hospital sitesin [place], [place], [place] and [place]. This disclosure is being madepursuant to the Care Everywhere program and may not contain all information available regarding this patient. Last updated 18.[facility] Allergies Active Allergy Reactions Criticality Noted Date Comments Sulfamethoxazole W-Trimethoprim Rash Low 03/08 Medications * Be aware that medications may not be up to date on this document. Alwaysverify current medications with the patient. Vit-Fe Fumarate-FA ( VITAMIN) 28-0.8 MG tablet Take 1 (one) tablet by mouth once daily Active ascorbic acid (VITAMIN C) 500 MG tablet Take 1 (one) tablet by mouth once daily Active ibuprofen (MOTRIN) 600 MG tablet Take 1 Tab by mouth every 6 hours as needed for Pain 60 Tab 1 06/09/2016 Active ciprofloxacin 0.3% (CILOXAN) 0.3 % ophthalmic solutionIndicat ions:[place] eye, left 2-3 gtts in left eye TID for 7 days 10 mL 03/23/2017 Active Multiple Vitamin (MULTI-VITAMIN DAILY PO) Active VITAMIN D, CHOLECALCIFEROL , PO Active [place] CAPS capsule Take 1 capsule by mouth Active Active Problems Problem Noted Date Diagnosed Date care following delivery 10/2015 contractions 05/10/2016 [place] product of IVF 05/07/2016 Cervical cerclage suture [...] grams, 25-26 completed weeks of gestation Immunizations Immunization Administration Dates Next Due Rho D Immune [...] more drinks on one occasion? Never 08/26/2024 Comments No Sex and Gender Information Value Date Recorded Sex Assigned at Not on file Legal Sex Female 1:18 PM CDT Gender Identity Not on file Sexual Orientation Not on file Last Filed Vital Signs Vital Sign Reading Time Taken Comments Blood Pressure 100/64 08/26/2024 1:30 PM PERCUSSION WELDING MACHINE OPERATOR Pulse 67 08/26/2024 1:36 PM PERCUSSION WELDING MACHINE OPERATOR Temperature 36.7 C (98.1 F) 08/26/2024 12:55 PM PERCUSSION WELDING MACHINE OPERATOR Respiratory Rate 16 08/26/2024 1:30 PM PERCUSSION WELDING MACHINE OPERATOR Oxygen Saturation 97% 08/26/2024 1:36 PM PERCUSSION WELDING MACHINE OPERATOR Inhaled Oxygen Concentration - - Weight 55.3 kg (122 lb) 08/19/2024 1:14 PM PERCUSSION WELDING MACHINE OPERATOR Height 154.9 cm (5' 1) 08/26/2024 9:17 AM PERCUSSION WELDING MACHINE OPERATOR Body Mass Index 23.05 08/19/2024 1:14 PM PERCUSSION WELDING MACHINE OPERATOR Plan of Treatment Health Maintenance Due Date Last Done Comments HIV SCREENING 2003 HEPATITIS C SCREENING 04/12/2006 DTAP/TDAP/TD VACCINES (1 - Tdap) 2007 HEPATITIS B VACCINE (1 of 3 - 19+ 3-dose series) 2007 PAP SMEAR 10/08/2020 10/08/2017 COVID-19 VACCINE (1 - 2023-2 5 season) 2024 DEPRESSION SCREENING 09/07/2024 INFLUENZA VACCINE (Season Ended) 2025 ZOSTER VACCINE (1 of 2) 2038 HIB VACCINE Aged Out No longer eligi ble based on patient's age to complete this topic HPV VACCINE Aged Out No longer eligi ble based on patient's age to complete this topic MENINGOCOCCAL (Group B) VACC INE SHARED DECISION-MAKING Aged Out No longer eligibl e based on patient's age to complete this topic MENINGOCOCCAL GROUPS A/C/Y/W VACCINE Aged Out No longer eligible b ased on patient's age to complete this topic PNEUMOCOCCAL VACCINE Aged Out No long er eligible based on patient's age to complete this topic Medical Devices Implanted Type Area Construction Carpenter Device Identifier Shelf Expiration Date Model / Serial / Lot Impl Brst Natrelle Inspira Mdrt Prfl 405 - [id number] Implanted:Qty: 1 on 08/26/2024 by Ten Dailey MD at [facility] Left: Breast [employer] 01/23/2029 [facility] / [id number] / Impl Brst Brittany Maldonado Mdrt Prfl 405 - [id number] Implanted:Qty: 1 on 08/26/2024 by Ten Dailey MD at [facility] Right: Breast [employer] 02/21/2029 [facility] / [id number] / Insurance SELF PAY NO INSURANCE Member Subscriber Plan / Payer (Ef fective for All Dates) Name:Fatemeh Georges Member ID:Not on file Relation to Subscriber:Self Name:FATEMEH GEORGES Subscriber ID:Not on file Payer ID:Not on file Group ID:Not on file Type:Self Pay Address: [place], [place] SELF PAY NO INSURANCE Pay [facility] Advance Directives * Full Code (Latest Code [...] 12:37 PM 05/23/2016 1:50 PM Care Teams Management Analyst Relationship Specialty Start Date End Date None, Physician PCP - General 08/26/24
--- OUTSIDE RECORDS SUMMARY | 2025-03-08 06:36 | XMS_ITS | Continuity of Care Document ---
Author Organization [facility] Address [address] [place] [address] Phone Care Team Providers Care Insurance Underwriter Name Role Phone Antoni Warren MD Unavailable Unavailable Advance Directives Directive Yes / No Effective Date File Name No Information Encounters Encounter Description Practice Location Reason(s) For Visit Diagnoses Date Provider Providers Copied on Encounter [facility], [address] [place] [address], [id number], [place] tel:[phone] [facility] No Information May-0 8 Kelvin Corrales. [address] [address], [place], [place], [id number] , [place]. tel: [phone] Family History Family Member Type Diagnosis Age [...]
== END 2025-03-08 06:32 | disposition home or self-care (01) ==
PROVIDERS: Visit Provider Physician Assistant
DX: R31.29 Other microscopic hematuria (principal)
CPT/HCPCS: 74178; Q9967